=== PATIENT | male | born 1955 | race Caucasian/White ===

== ENCOUNTER 2017-05-04 10:48 | Inpatient (IN) | payer MEDICARE ==
[2017-05-04 11:36] LABS: #Basophils 0.1 thou/uL (0.0-0.2); #Eosinphils 0.1 thou/uL (0.0-0.7); #Lymphocytes 1.9 thou/uL (1.20-3.40); #Monocytes 0.8 thou/uL (0.11-0.59); %Basophils 0.6 % (0.0-1.0); %Lymphocytes 17.2 % (21.0-51.0); %Monocytes 7.3 % (0.0-10.0); Hemoglobin 6.4 g/dL (14.0-18.0); Mean Corpuscular HGB CONC 34.3 g/dL (32.0-36.0); Mean Corpuscular Hemoglobin 36.2 pg (27.0-31.0); Mean Platelet Volume 7.2 fL (7.4-10.4); Platelet Count 196 thou/uL (130-400); RBC Distribution Width 13.7 % (11.5-14.5); Red Blood Cell (RBC) Count 1.77 mill/uL (4.70-6.10); White Blood Cell (WBC) Count 10.8 thou/uL (4.8-10.8)
--- NOTE | 2017-05-04 12:02 | CT ---
CT CERVICAL SPINE WITHOUT CONTRAST: Comparison: 04-19-13 History: Fall two days ago with neck pain. Technique: Multiple contiguous axial images were obtained in a CT of the cervical spine without contr ast. Sagittal and coronal reformats were performed. FINDINGS: There are moderate to severe degenerative changes throughout the cervical spine. The vertebral bodies demonstrate normal height and alignment without acute fracture or subluxation. No prevertebral soft tissue swelling is seen. The posterior facets are well aligned. Normal alignment of the skull base with the cervical spine is seen. There are multiple disc osteophyte complexes within the central canal. The largest is seen at C3-4 an d this appears to cause severe central canal stenosis at this level. This was present on the prior ex amination but slightly more prominent on today's examination. IMPRESSION: Degenerative changes of the cervical spine without acute osseous abnormality. POS: [facility]
--- NOTE | 2017-05-04 12:04 | CT ---
HEAT CT WITHOUT CONTRAST: 05/04/2017 HISTORY: Dizzy. Syncope. Fall. Pain. COMPARISON: 02/16/2015 TECHNIQUE: Serial axial CT imaging is obtained at 5 mm intervals, from the vertex through the skull base, withou t contrast. FINDINGS: A focal area of calcification is seen along the course of the transverse sinus on the left, unchanged since 2014. The imaged paranasal sinuses/mastoid air cells are well aerated. There is no displaced calvarial fracture. There is no intracranial hemorrhage, midline shift, mass effect, or ventricular enlargement. There i s mild diffuse cerebral volume loss. There is periventricular and deep white matter hypodensity, sug gesting small vessel disease. IMPRESSION: Evidence of small vessel disease. No intracranial hemorrhage or displaced calvarial fracture. POS: [facility]
[2017-05-04 12:05] LABS: ALT (SGPT) 119 U/L (8-55); AST (SGOT) 160 U/L (5-34); Acetaminophen Less than 6.0 mcg/mL (10.0-30.0); Albumin 2.8 g/dL (3.4-4.8); Alcohol Less than 10 mg/dL (Less than 10); Alkaline Phosphatase 71 U/L (40-150); Anion Gap 12 mmol/L (10-20); BUN (Urea Nitrogen) 95 mg/dL (8.4-25.7); Bilirubin, Total 0.9 mg/dL (0.2-1.2); CK (CPK) 346 U/L (30-200); Calc. Creatinine Clearance 0 mL/min (70-130); Calcium 8.9 mg/dL (7.8-10.44); Carbon Dioxide 22 mmol/L (23-31); Chloride 108 mmol/L (98-107); Estimated GFR-MDRD 35; Glucose 129 mg/dL (80-115); Potassium 4.1 mmol/L (3.5-5.1); Protein, Total 5.8 g/dL (5.8-8.1); Salicylate Less than 8.0 mg/dL (15.0-30.0); Sodium 138 mmol/L (136-145)
[2017-05-04 12:08] LABS: Troponin I 0.276 ng/mL (< 0.028)
--- NOTE | 2017-05-04 12:08 | RAD ---
SINGLE VIEW OF THE CHEST: Comparison: 02-16-15 History: Patient fell two days ago with altered mental status, weakness. FINDINGS: Single view of the chest shows a normal sized cardiomediastinal silhouette. There is no evidence of c onsolidation, mass, or pleural effusion. The bones are unremarkable. IMPRESSION: No evidence of acute cardiopulmonary disease. POS: [facility]
[2017-05-04 12:11] LABS: CKMB 12.1 ng/mL (0-6.6)
[2017-05-04 13:11] LABS: Bilirubin Negative (Negative); Blood, Urine Negative (Negative); Clarity CLEAR (Clear); Glucose, Urine (Dipstick) Negative (Negative); Leukocyte Negative (Negative); Nitrite Negative (Negative); Protein, Urine (Dipstick) Negative (Neg-Trace); Specific Gravity, Urine 1.018 (1.002-1.036); Urobilinogen 0.2 mg/dL (0.2-1.0); pH, Urine 5.5 (5.0-9.0)
[2017-05-04 13:24] LABS: Amphetamine Not Detected (NotDetected); Barbiturates Screen Not Detected (NotDetected); Benzodiazepine Screen Not Detected (NotDetected); Cocaine Metabolite Screen Detected (NotDetected); Medtox Control Line Valid? VALID (VALID); Medtox Reader # READER 1; Methadone Not Detected (NotDetected); Methamphetamine Not Detected (NotDetected); Opiate Screen Not Detected (NotDetected); Oxycodone Screen Not Detected (NotDetected); Phencyclidine (PCP) Not Detected (NotDetected); THC/Cannabinoid Screen Not Detected (NotDetected); Tricyclic Screen Not Detected (NotDetected)
[2017-05-04 15:17] LABS: Troponin I 0.238 ng/mL (< 0.028)
--- NOTE | 2017-05-04 15:48 | HP ---
PRIMARY CARE PHYSICIAN: Dr. Escoto. CHIEF COMPLAINT: Generalized weakness and I passed out two days ago. HISTORY OF PRESENT ILLNESS: Mr. Blackwell is a pleasant 62-year-old gentleman who has a history of hyp ertension and previous alcohol abuse as well as polysubstance abuse. Please note that the patient is a bit lethargic and is very difficult to obtain a history from him. Therefore, the history and phys ical was extremely limited. Mr. Blackwell states that he passed out about 2 days ago. He initially sa ys he was out for a day and a half and then later says he was unconscious for a day. It is unclear h ow he made it to the emergency room. He says that a friend called EMS for him. He says it is a pers on that lived in the building; however, it is unclear whether the person came and found him or gricelda prakash called the patient for help. The patient had actually about 2 stories. He says that one he went a nd got the neighbor who apparently lived across the craft, but then later he says that he called out f or help and the neighbor heard him and then called EMS. It is unclear whether or not he was ambulato ry after he had this syncopal episode and I think that the patient may not know. As he originally sa id he did not know initially. Nevertheless, he was brought to the emergency room and he says that he has been feeling weak over the last few days. He says that sometimes he feels dizzy and he has had some nausea. He also admits to some lower abdominal pain and he also says that he has not eaten in a couple of days, but otherwise essentially no other history is obtainable. When asked if he has had any hematemesis or any melena. He answers no; however, he has not had a bowel movement in several da ys and he cannot remember. When he was in the ER, he was found to be anemic with hemoglobin of 6.4, which is quite a bit lower than his last admission about a year or so ago and CT scan of the brain wh ich was negative and he is being admitted for syncope and severe anemia. The review of systems is es sentially unobtainable and I am not sure how reliable it is; therefore a full review of systems was n ot performed. He was able to tell me that he is not having any headache. He denied having any chest pain. He denied feeling short of breath and he denied any lower extremity pain, but other than that it was unobtainable. PAST MEDICAL HISTORY: Significant for hypertension, previous alcohol abuse, polysubstance abuse, hep atitis C. The patient admits to cirrhosis. There was some mention of portal hypertension on a previ ous endoscopy. PAST SURGICAL HISTORY: He has had a rhinoplasty, left shoulder surgery, he has had a suprapubic cath eter placed. ALLERGIES: No known drug allergies. SOCIAL HISTORY: He says he smokes about a pack a day for many years. He says that he drinks for a l leopoldo time. He initially would not quantitate, but then later says it is about quarter and half of bee r a day, but he says his last drink was over 4 months ago. He also uses cocaine which he smokes. He denies any other illicit drug use. He is not . He has no children and he says that a person by the name of Ishan Salinas who was in acquaintance would be his next of kin. FAMILY HISTORY: No history of any inheritable diseases. MEDICATION: He says he is on lisinopril. PHYSICAL EXAMINATION: GENERAL: He is alert. He is oriented, but he has very difficult responding to questions. VITAL SIGNS: His blood pressure was approximately 127/80, heart rate was in the 70s, respiratory rat e of 16, and he is afebrile. He is also a bit underweight for his height. He does not appear to be very well kept. HEENT: His pupils are equal and reactive. They appear to be slightly icteric. Throat: There is no erythema, no exudates. NECK: No adenopathy, no bruits. LUNGS: Clear. I do not appreciate any wheezing or rales. CARDIOVASCULAR: He has a normal S1 and S2. I did not appreciate an S3 or S4. ABDOMEN: Soft, nontender. The liver was palpable below the left costal margin. There is no fluid w ave. No rebound, no guarding, no appreciable splenomegaly. EXTREMITIES: There is no edema. He does have some chronic venous stasis changes. He has some bunio n deformities of the feet. NEUROLOGIC: Neurologically, his muscle strength was 5/5 in both his upper and lower extremities. He had good stone breaker strength. He did have some difficulty with [id number], a little bit of past point ing there. IMAGING DATA AND LABORATORY DATA: On his EKG, it was sinus. The rate is 66. He did have some deep T-wave inversions in V4 through V6 and some voltage criteria for LVH. White blood cell count 10.8, h emoglobin 6.4, hematocrit is 18.7, and platelet count is 196. Sodium 138, potassium 4.1, chloride is 108, CO2 was 22, BUN of 95, creatinine of 1.98, glucose is 129, AST is 160, ALT is 119, creatinine k inase was elevated at 346. Urinalysis was essentially negative and urine toxicology was positive for cocaine. CT of the brain was negative for any acute intracranial infarcts or bleed and CT scan of t he cervical spine, there is no fracture or dislocation. ASSESSMENT AND PLAN: This is a 62-year-old gentleman that presents with syncope and anemia. It is u nclear whether the syncope was related to the anemia or some other etiology. 1. With regards to the anemia, this is a macrocytic anemia. It is likely nutritional due to excessi ve alcohol intake whether this was in the past or recent. However, the patient does have a history o f cirrhosis and there was some evidence of portal gastropathy on an endoscopy that he had about a yea r ago and this puts him at risk for possible gastrointestinal etiologies for bleed such as esophageal varices, etc. For this reason, we will check his stool guaiac and likely we will go ahead and consu Gastroenterology for evaluation. We will also check a B12 and folic acid level as well as iron an d ferritin and place him empirically on thiamine and folate. 2. Syncope. This could be as a result of the anemia. It could be a result of substance abuse and/o r both; however he does have some significant EKG changes with some deep T-wave inversions laterally. Once he is clinically more stable, he likely will need a test to rule out cardiac ischemia such as a stress test; however, at this point, we can do more noninvasive evaluation by getting an echo as we ll as carotid Dopplers. 3. We will place him on GI prophylaxis. We will get an INR and if the INR is not elevated, then we will place him on deep venous thrombosis prophylaxis. We will also monitor his blood pressure and tr eat that as needed as well.
[2017-05-04] MEDS ORDERED: Ondansetron ODT 4 MG TAB SL PRN (16:32)
[2017-05-04] MEDS ORDERED: Ondansetron HCl/PF 4 MG/2 ML Vial IVP PRN ×2 (16:32→17:00)
[2017-05-04] MEDS ORDERED: Mag-Al 1200 mg/1200 mg/30 ML UDCUP PO PRN (17:00)
[2017-05-04] MEDS ORDERED: Ondansetron ODT 4 MG TAB PO PRN (17:00)
[2017-05-04] MEDS ORDERED: hydrALAZINE 20 MG/ML VIAL SLOW IVP PRN (17:00)
--- NOTE | 2017-05-04 18:17 | ULT ---
BILATERAL CAROTID DUPLEX ULTRASOUND: 05/04/17 HISTORY: Syncope. Real time color doppler evaluation of the right and left carotid systems was performed. This shows so me plaque formation at the origin of both internal carotid arteries. On the right side, peak systolic velocities of the common carotid are 139 cm/s. Internal carotid velo cities were 130 cm/s. External carotid velocities 132 cm/s. On the left side, peak systolic velocities of the common carotid are 153 cm/s. Internal carotid veloc ities 144 cm/s. External carotid velocities 116 cm/s. Vertebral flow is antegrade bilaterally. IMPRESSION: Elevated peak systolic velocities in both internal carotid arteries, also with the diastolic velociti es of the left internal carotid artery slightly elevated at 40 cm/s. However, this patient also has e levated common carotid velocities, although the peak systolic velocities would fall in the 50-69% ran ge. It is probably less than this given the overall elevated velocities. POS: [facility]
[2017-05-04] MEDS: Sodium Chloride 0.9% 1,000 ML IV SCH (18:38)
[2017-05-04 18:52] LABS: Troponin I 0.257 ng/mL (< 0.028)
[2017-05-04] MEDS ORDERED: FLU VACC QS2017-18 36 mo. & older 0.5 ML SYRINGE IM ONE (21:00)
--- NOTE | 2017-05-04 22:16 | CON ---
DATE OF CONSULTATION: 05/04/2017 HISTORY OF PRESENT ILLNESS: The patient is a 62-year-old male who presented with generaliz ed weakness. He is a somewhat poor historian, is having difficult to remembering embarrassed aspects of his history of present illness. He reports he got dizzy and weak and was unable to stand. He de nies any melena, hematochezia, any nausea, vomiting, any recent weight loss. He denies any abdominal pain. He is noted to be anemic with hemoglobin of 6.4. He underwent evaluation last year by Dr. Cesario ugarte for anemia and diarrhea and EGD and colonoscopy showed small adenomatous polyp, moderate divertic ulosis coli, moderate internal hemorrhoids, mild portal hypertensive gastropathy in the proximal stom ach, but no other abnormalities. He does have a history of hepatitis C and cirrhosis. PAST MEDICAL HISTORY: Significant for hepatitis C, alcohol abuse, polysubstance abuse, cirrhosis. PAST SURGICAL HISTORY: Includes rhinoplasty shoulder surgery, suprapubic catheter placement. ALLERGIES: No known allergies. SOCIAL HISTORY: He stopped drinking. He continues to smoke. He says he continues to use cocaine. FAMILY HISTORY: Negative for GI or liver disease. MEDICATIONS: He reports he is on lisinopril, but he is having difficulty remembering the aspects on his discharge summary approximately a year ago. Corgard 20 mg p.o. daily, Lasix 40 mg p.o. daily, Al dactone 100 mg p.o. daily, lisinopril 20 mg p.o. daily, Flomax 0.4 mg p.o. daily, thiamine 100 mg p.o . daily, hydralazine 50 mg p.o. t.i.d., Proscar 5 mg p.o. daily, Cipro 500 mg p.o. b.i.d. for 5 days and Flagyl for 5 days. REVIEW OF SYSTEMS: Unobtainable. PHYSICAL EXAMINATION: VITAL SIGNS: Temperature 98.7, pulse 77, respiratory rate 18, blood pressure 157/72. HEENT: Unremarkable except for poor dentition. NECK: Supple. CHEST: Clear. CARDIOVASCULAR: Regular rate and rhythm. ABDOMEN: Soft, nontender, without organomegaly or masses. Bowel sounds are present. RECTAL: Deferred. EXTREMITIES: Normal. NEUROLOGIC: Nonfocal. LABORATORY DATA: Admission laboratory shows a white blood cell count 10.8, hemoglobin 6.4, hematocri t of 18.7, MCV is 106, platelet count 196. Chemistry panel, chloride 108, CO2 of 22, BUN of 95, crea tinine 1.98, glucose 129, AST 160, ALT 119, CK of 346. Albumin 2.8. Troponin 0.267. Previous alpha fetoprotein from a year ago was 56.1. Vitamin B12 from last year is 939. Folate level was normal. Hepatitis C antibody is positive with hepatitis C RNA, UltraQuant showing 129,450. ASSESSMENT: 1. Anemia -- probably multifactorial secondary to portal hypertensive gastropathy. 2. Renal insufficiency. 3. Polysubstance abuse. 4. History of portal hypertensive gastropathy. 5. Cirrhosis secondary to hepatitis C. RECOMMENDATIONS: 1. Resume Corgard. 2. PPI. 3. Transfuse. 4. No need for endoscopy at this time.
[2017-05-04] MEDS ORDERED: diphenhydrAMINE 25 MG CAP PO SCH (22:45)
[2017-05-04 22:59] LABS: Troponin I 0.263 ng/mL (< 0.028)
[2017-05-05] MEDS: Sodium Chloride 0.9% 1,000 ML IV SCH (05:05)
[2017-05-05 05:34] LABS: #Basophils 0.1 thou/uL (0.0-0.2); #Eosinphils 0.2 thou/uL (0.0-0.7); #Lymphocytes 2.2 thou/uL (1.20-3.40); #Monocytes 0.7 thou/uL (0.11-0.59); #Neutrophils 4.9 thou/uL (1.40-6.50); %Basophils 1.1 % (0.0-1.0); %Eosinophils 2.9 % (0.0-10.0); %Lymphocytes 26.7 % (21.0-51.0); %Monocytes 8.8 % (0.0-10.0); %Neutrophils 60.5 % (42.0-75.0); Hemoglobin 6.5 g/dL (14.0-18.0); Mean Corpuscular HGB CONC 35.3 g/dL (32.0-36.0); Mean Corpuscular Hemoglobin 35.4 pg (27.0-31.0); Mean Platelet Volume 7.5 fL (7.4-10.4); Platelet Count 122 thou/uL (130-400); RBC Distribution Width 16.6 % (11.5-14.5); Red Blood Cell (RBC) Count 1.84 mill/uL (4.70-6.10); White Blood Cell (WBC) Count 8.1 thou/uL (4.8-10.8)
[2017-05-05 05:54] LABS: Anion Gap 8 mmol/L (10-20); BUN (Urea Nitrogen) 71 mg/dL (8.4-25.7); Calc. Creatinine Clearance 36 mL/min (70-130); Calcium 8.1 mg/dL (7.8-10.44); Carbon Dioxide 23 mmol/L (23-31); Chloride 111 mmol/L (98-107); Estimated GFR-MDRD 39; Glucose 94 mg/dL (80-115); Iron 199 ug/dL (65-175); Iron Binding Capacity, Total 259 mcg/dL (261-462); Potassium 3.8 mmol/L (3.5-5.1); Sodium 138 mmol/L (136-145)
[2017-05-05 06:12] LABS: Ferritin 886.49 ng/mL (22-322); Thyroid Stimulating Hormone 2.9275 uIU/mL (0.35-4.94)
[2017-05-05 06:26] LABS: Folate (Folic Acid) 14.3 ng/mL (7.0-31.4)
[2017-05-05 08:24] VITALS: BMI 19.0
[2017-05-05] MEDS ORDERED: Pantoprazole 40 MG VIAL IVP SCH (09:00)
[2017-05-05] MEDS: Folic Acid 1 MG TAB PO SCH (09:32)
[2017-05-05] MEDS: Nadolol 40 MG TAB PO SCH (09:32)
--- NOTE | 2017-05-05 10:08 | PDOC.PN ---
- Subjective Encounter Start Date: 05/05/17 Encounter Start Time: 10:04 Last night Mr. Blackwell made statements to staff that he wanted to kill himself, and end is life. A sitter was ordered. Now he says he was " just over reacting" . That he was just having an Anxiety and panic attack due to a Surgery which " keeps getting put off". He also refused to have the Echo done, and says he doesn't feel that it is necessary. When asked again how it came to be that he is in the hospital he now says he doesn't remember passing out. He now says that he just " had a panic/anxiety attack, and just succumbed to his will " and that is why he is in the hospital. - Objective Resuscitation Status: Resuscitation Status FULL:Full Resuscitation MAR Reviewed: Yes Vital Signs & Weight: Vital Signs (12 hours) Temp Pulse Resp BP Pulse Ox 05/05/17 07:50 98.6 F 88 18 118/60 96 05/05/17 04:00 97.7 F 85 15 149/74 H 100 05/04/17 22:10 99.0 F 86 18 161/74 H 98 Weight Admit Weight 132 lb Weight 132 lb 9 oz I&O: 05/04/17 05/05/17 05/06/17 06:59 06:59 06:59 Intake Total 2375 Output Total 875 Balance 1500 Result Diagrams: 05/05/17 04:25 05/05/17 04:25 Phys Exam - Physical Examination HEENT: PERRLA Respiratory: no wheezing, no rales, no rhonchi, clear to auscultation bilateral Cardiovascular: RRR, no significant murmur Gastrointestinal: soft, non-tender, positive bowel sounds + Right inguinal hernia Musculoskeletal: no edema Dx/Plan (1) Alcoholic encephalopathy Code(s): G31.2 - DEGENERATION OF NERVOUS SYSTEM DUE TO ALCOHOL; F10.20 - ALCOHOL DEPENDENCE, UNCOMPLICATED Status: Acute (2) Chronic hepatitis C Code(s): B18.2 - CHRONIC VIRAL HEPATITIS C Status: Chronic (3) Cocaine abuse Code(s): F14.10 - COCAINE ABUSE, UNCOMPLICATED Status: Chronic (4) HTN (hypertension) Code(s): I10 - ESSENTIAL (PRIMARY) HYPERTENSION Status: Chronic (5) Portal hypertensive gastropathy Code(s): K31.89 - OTHER DISEASES OF STOMACH AND DUODENUM Status: Chronic - Plan * Mr. Blackwell has off and on confusion and some elements of confabulation which are can been seen in alcoholic encephalopathy- he says he no longer drinks, but has metabolic features consistent with chronic alcohol abuse, including elevated LFT's, and macrocytic anemia. I suspect he has Acoholic encephalopathy - will give Thiamine IV for 3 days, then transition back to oral * Anemia- GI consult appreciated- this is likely multi-factoral- will continue Thiamine and folate, and transfuse for HGB less than 7 * Syncope- it is unclear if he ever had syncope, unfortunately I am unable to obtain an accurate history- He has refused Echo, and will discontinue Telemetry * Inguinal Hernia- will consult Surgery * ? Suicidal Ideation- he now denies- will continue sitter, and Obtain [facility] consult .
[2017-05-05] MEDS: Nicotine 14 MG PATCH TD SCH (17:39)
--- NOTE | 2017-05-05 19:33 | CON ---
DATE OF CONSULTATION: 05/05/2017 HISTORY: Mr. Blackwell is a 62-year-old man well known to me from multiple clinic encounters for a right inguinal hernia. He said that he wanted this repaired in the past and I even had him scheduled for a repair on Tuesday, but he did not keep his operative appointment. He states that he misunderstood that he was scheduled for surgery, but then he states that he was very anxious about having surgery, so it is unclear whether he knew about his surgery date or not. He came to the hospital on Tuesday night because of feeling weak and dizzy and possibly falling or having a syncopal episode. Again the details are unclear and the patient's history is somewhat inconsistent. He denies any recent resumption of alcohol abuse, although he has been smoking about half pack a day and using cocaine. He was found on evaluation in the emergency room to have a very low hemoglobin and hematocrit of 6.4 and 18.7. He was admitted to the hospital for further observation and is currently being transfused. He was also noted to have acute renal insufficiency with a BUN and creatinine of 95 and 1.98 that has come down somewhat to 71 and 1.8. On admission, his AST, ALT were also elevated at 160 and 119 and his troponins were in the 0.27 range and has remained about the same. When I last saw the patient in my clinic at bedside, ultrasound did not reveal any significant ascites. He has had a history of urethral injury from a traumatic [place] requiring a suprapubic catheter placement and he has had some difficulty with voiding since then, but postvoid residual was small to moderate on ultrasound, so I have prescribed Flomax to try to minimize postoperative voiding problems. He states that he was taking his Flomax as prescribed, but stopped taking them three days ago because he ran out. He was given refills on this, but he did not refill it. He did not understand that he was supposed to take this continuously until after his surgery. The patient states that when he went to the bathroom here in the hospital just a while ago, his stool was very dark in color, but that he has not noticed any changes in color prior to today. He states that he has not seen any blood in his stool and he has not thrown up any blood. He denies any abdominal pain. His right hernia is still bothering him. PAST MEDICAL HISTORY: Hepatitis C with cirrhosis and history of alcohol abuse, history of portal hypertensive gastropathy and an adenomatous polyp by an endoscopy one year ago, polysubstance abuse and urethral injury leading to ongoing voiding difficulties, known gallstones by ultrasound. PAST SURGICAL HISTORY: Rhinoplasty, shoulder surgery, suprapubic catheter. SOCIAL HISTORY: He is still smoking and occasionally abusing cocaine, but states repeatedly that he has not had any alcohol in several months. FAMILY HISTORY: His father had alcoholic cirrhosis, but this resolved after he stopped drinking. MEDICATIONS: He reports that he was taking lisinopril as an outpatient as well as levocetirizine. He told me that he was taking Flomax up until about 3 days ago. ALLERGIES: He has no known drug allergies. LABORATORY DATA: As stated in the HPI. IMAGING: CT of the brain and cervical spine did not show any acute abnormalities. He likely has a noncritical stenosis of the carotid arteries by Doppler. PHYSICAL EXAMINATION: VITAL SIGNS: Patient has been afebrile since his admission. Heart rate 81, blood pressure 118/64, respirations 16, 97% saturated on room air. GENERAL: Reveals a somewhat disheveled man in no acute distress. He is not flushed or toxic in appearance. He is not jaundiced or icteric. He is not notably anxious. HEENT: Unremarkable. NECK: Supple, without lymphadenopathy or thyroid nodules. No supraclavicular or cervical lymphadenopathy. HEART: Regular in its rate and rhythm. I do not appreciate any murmurs, rubs, or gallops. LUNGS: Clear. ABDOMEN: Soft and nondistended. His liver is palpable below the costal margin on the right for a few fingerbreadths. No definite fluid wave, easily reducible right inguinal hernia. EXTREMITIES: Warm and well perfused without edema. NEUROLOGIC: No focal deficits. PSYCHIATRIC: Patient is a very vague historian and inconsistent. He did not do well on the mini mental status exam. He was able to draw a clock face, but could not give the correct day of the week or date of the month. He initially stated that it was 1918, although he self-corrected to 2018. It took him several minutes to recall the name the president, he could not count backwards by 3s and could not even give the correct starting number. He remembered 2/3 random words. ASSESSMENT AND PLAN: A 62-year-old man with a moderately symptomatic right inguinal hernia. He likely has decompensated cirrhosis. He is very anemic and in acute renal insufficiency as well. At this point, he is not an operative candidate. I have advised him to follow up with me as an outpatient after his medical issues have stabilized for consideration of surgery. I have ordered an ultrasound of the abdomen. His alpha-fetoprotein was elevated, so there is concern for hepatocellular carcinoma. I have also asked the polytechnic registrar to check for hydronephrosis since he has a known history of urethral injury and difficulty voiding, requiring suprapubic catheter placement in the past. I will ask his nurse to check a postvoid residual and will start him back on his Flomax to try to minimize any contribution of his prostate to his voiding issues. He also has elevated troponins, but has refused echocardiogram. His medical doctors believe that the troponins are from demand ischemia rather than an acute coronary event. Nonetheless, an echocardiogram or evaluation by a water/wastewater engineer would be necessary before proceeding with elective surgery for his hernia. At this point, he is likely not going to be able to have elective hernia repair unless he has a dramatic improvement in his clinical status, but we will see how he does. CHIP
[2017-05-05] MEDS: Tamsulosin HCl 0.4 MG CAP PO SCH (20:34)
[2017-05-05] MEDS: Famotidine 20 MG TAB PO SCH (20:34)
--- NOTE | 2017-05-05 22:02 | PRG ---
DATE OF SERVICE: 05/05/2017 SUBJECTIVE: Mr. Blackwell has no acute complaints. He did pass a couple of small black bowel movement s today. These were firm small hard stools. Has had no abdominal pain. OBJECTIVE: VITAL SIGNS: Temperature 98.7, pulse 61, blood pressure 116/63. GENERAL: He is in no acute distress. He is awake and alert. EYES: Have no scleral icterus. LUNGS: Clear to auscultation bilaterally. HEART: Regular rate and rhythm. ABDOMEN: Soft, nontender, nondistended, bowel sounds are present. EXTREMITIES: No lower extremity edema. IMPRESSION: 1. Anemia. This is likely multifactorial. He has macrocytic anemia and hemoglobin of 6.5 without s ignificant overt bleeding. He has renal insufficiency and likely dietary component to this. He did have black stool today and with history of cirrhosis and failure to respond appropriately to transfus ion. We will plan to evaluate this further with endoscopy. He did receive a unit of blood and his h emoglobin improved from 6.4 to 6.5 and remained stable at 6.4 to 6.5. He received an additional unit of blood today. 2. Cirrhosis and polysubstance abuse. 3. Encephalopathy. He does not have significant asterixis currently. He is receiving thiamine for suspected alcoholic encephalopathy. 4. Chronic hepatitis C. RECOMMENDATIONS: 1. We will plan EGD tomorrow. 2. Recheck hemoglobin to evaluate response to transfusion. 3. Add proton pump inhibitor daily.
[2017-05-06 05:17] LABS: Platelet Count 86 thou/uL (130-400)
[2017-05-06] MEDS: Nadolol 40 MG TAB PO SCH (06:01)
--- NOTE | 2017-05-06 07:59 | ULT ---
COMPLETE ABDOMEN ULTRASOUND: INDICATION: History of severe anemia, urethral injury, alcohol abuse, polysubstance abuse, hepatitis C, and cirrh osis with elevated LFTs. FINDINGS: There is mild scattered ascites. There is cirrhotic morphology of the liver. No focal hepatic lesio n was evident. There was gallbladder wall thickening measuring up to 4.7 mm without reported sonogra phic Salmeron's sign. Shadowing mobile sludge and stone was present within the gallbladder. Common bi le duct measured 4.3 mm. Proximal aorta measured 2.3 cm in its greatest dimension. The mid abdominal aorta measured 1.8 cm. The distal abdominal aorta measured 1.6 cm. The right kidney measured 9.2 x 3.6 x 4.4 cm. The left kidney measured 9.1 x 4.7 x 4 cm. No focal r enal lesion or hydronephrosis is evident. Prevoid bladder volume was 334.2 cc. Post bladder volume was 299.2 cc. The patient was unable to re portedly void completely. Visualized aspects of the pancreas were unremarkable. The spleen was mildly enlarged measuring 12.7 cm. IMPRESSION: 1. Cirrhosis with mild ascites. 2. The spleen is upper limits of normal measuring 12.7 cm. 3. Gallbladder wall thickening may be related to passive edema from the patient's cirrhosis. There is cholelithiasis and gallbladder sludge present. No sonographic Salmeron's sign was present to sugges t the presence of acute cholecystitis. 4. Pre- and post-bladder volumes as above. POS: [facility]
--- NOTE | 2017-05-06 10:58 | PQF ---
CLINICAL DOCUMENTATION IMPROVEMENT CLARIFICATION FORM: ICD-10 Updated PLEASE DO AN ADDENDUM TO THE PROGRESS NOTE WITH ANY DOCUMENTATION UPDATES OR ADDITIONS AND CARRY THROUGH TO DC SUMMARY. THANK YOU. DATE: 05/06 ATTN: DR. VINAY PEOPLES Please exercise your independent, professional judgment in responding to the clarification form. Clinical indicators are provided on the bottom of this form for your review. Please check appropriate box(s): [ ] Acute Renal Failure (ARF) / Acute Kidney Injury (PEDRO LUIS) [ ] Other Etiology or underlying conditions related to the diagnosis of ARF/ PEDRO LUIS: [ ] Acute on Chronic Renal Failure please specify Stage of CKD (see below) [ ] CKD without ARF/PEDRO LUIS please specify Stage of CKD [ ] Other diagnosis [ ] Unable to determine National Kidney Foundation Guidelines for CKD Staging Stage I Kidney damage with normal or increased GFR GFR > 90 Stage II idney damage with mildly decreased GFR GFR 60-89 Stage III Kidney damage with moderately decreased GFR GFR 30-59 Stage IV Kidney damage with severely decreased GFR GFR 16-29 Stage V Kidney failure GFR<15 ESRD End Stage Renal Disease On dialysis For continuity of documentation, please document condition throughout progress notes and discharge summary. Thank You. CLINICAL INDICATORS - SIGNS / SYMPTOMS / LABS ER PHYSICIAN DIAGNOSES DOCUMENTATION 05/04: SYMPTOMATIC ANEMIA, ACUTE ON CHRONIC RENAL INJURY GI CONSULT DOCUMENTATION 05/04: ASSESSMENT: 2. RENAL INSUFFICIENCY GS CONSULT DOCUMENTATION 05/05: ASSESSMENT & PLAN: HE IS VERY ANEMIC & IN ACUTE RENAL INSUFFICIENCY WELL BUN: 95 CR: 1.98 GFR: 35 71 1.80 39 RISK FACTORS: SEVERE ANEMIA COCAINE ABUSE ALCOHOL ABUSE DEHYDRATION TREATMENTS: IVF (NS IV 05/04 - 05/05, 1L NS IN ER) SERIAL LABS BLOOD TRANSFUSION (2U PRBC'S) THANK YOU! Марина (This form is maintained as a part of the permanent medical record) 2014 [employer]. All Rights Reserved Марина Horowitz RN, BSN [email or web address] Office: [phone] [facility]
[2017-05-06] MEDS: Famotidine 20 MG TAB PO SCH (11:32)
--- NOTE | 2017-05-06 12:01 | OP ---
DATE OF PROCEDURE: 05/06/2017 PROCEDURE: Esophagogastroduodenoscopy. PREOPERATIVE DIAGNOSES: Anemia and gastrointestinal bleed with black stool. PROCEDURE IN DETAIL: Informed consent was obtained from the patient. He was sedated with total intr avenous anesthesia. The bite block was placed and the endoscope was advanced easily to the second po rtion of the duodenum and retroflexion was performed in the stomach. The esophagus had no varices. There was a 1.5 cm shallow linear ulcer in the distal esophagus. There were no stigmata of recent bl eeding associated with this. The stomach was normal including retroflexed views. The pylorus and fi rst and second portions of the duodenum were normal. IMPRESSION: 1. Grade C erosive esophagitis with a shallow linear 1.5 cm ulcer in the distal esophagus without st igmata of recent bleeding. 2. Otherwise normal esophagogastroduodenoscopy. No varices. RECOMMENDATIONS: 1. Proton pump inhibitor p.o. daily. 2. Follow up in GI Clinic for long-term management of the cirrhosis. I will sign off. Please call if GI can be of assistance.
[2017-05-06] MEDS: Folic Acid 1 MG TAB PO SCH ×3 (12:11→19:50)
[2017-05-06] MEDS ORDERED: PROPOFOL 200 MG/20 ML VIAL ONE (14:34)
[2017-05-06] MEDS ORDERED: Lidocaine 1% PF 5 ML VIAL ONE (14:34)
[2017-05-06] MEDS ORDERED: cloNIDine 0.1 MG TAB PO PRN (17:21)
[2017-05-06] MEDS: Nicotine 14 MG PATCH TD SCH (17:39)
[2017-05-06] MEDS: Tamsulosin HCl 0.4 MG CAP PO SCH (19:43)
--- NOTE | 2017-05-06 21:54 | PDOC.PN ---
- Subjective Encounter Start Date: 05/06/17 Encounter Start Time: 15:30 Patient seen and examined. No new complaints. No overnight events. s/p EGD. Denies any suicidal ideation - Objective Resuscitation Status: Resuscitation Status FULL:Full Resuscitation MAR Reviewed: Yes Vital Signs & Weight: Vital Signs (12 hours) Temp Pulse Resp BP Pulse Ox 05/06/17 20:00 97.4 F L 64 20 160/85 H 100 05/06/17 11:57 98.7 F 56 L 16 110/70 97 Weight Admit Weight 132 lb Weight 138 lb 14.4 oz I&O: 05/05/17 05/06/17 05/07/17 06:59 06:59 06:59 Intake Total 2375 1813 1111 Output Total 875 275 Balance 1500 1538 1111 Result Diagrams: 05/07/17 08:37 05/05/17 04:25 Phys Exam - Physical Examination Constitutional: NAD Respiratory: no wheezing, no rhonchi Cardiovascular: RRR, no rub Gastrointestinal: soft, non-tender, positive bowel sounds Musculoskeletal: no edema Neurological: moves all 4 limbs Dx/Plan - Plan DVT proph w/SCDs IMPRESSION: 1. Symptomatic Anemia s/p 2 unit PRBC, Chronic GI blood loss from Grade C esophagitis 2. Near syncope due to # 1, Refused Echo 3. ?Mod Carotid artery disease - PCP to follow 4. Rt inguinal hernia - Surg following, Post void 190 ml 5. HTN/Cocaine abuse/Cirrhosis/Chronic Hep C/Med noncompliance/PEDRO LUIS on CKD 3/ Elevated troponins due to severe anemia/Thrombocytopenia PLAN: * GI/Surg following. * AM labs * Transfuse PRN * Cont to monitor * DC planning * Counselled on drug cessation. Review of Systems - Review of Systems Respiratory: negative: Cough, Dry, Shortness of Breath, Hemoptysis, SOB with Excertion, Pleuritic Pain, Sputum, Wheezing Cardiovascular: negative: chest pain, palpitations, orthopnea, paroxysmal nocturnal dyspnea, edema, light headedness - Medications/Allergies Allergies/Adverse Reactions: Allergies Allergy/AdvReac Type Severity Reaction Status Date / Time No Known Drug Allergies Allergy Verified 05/04/17 16:07 Medications: Current Medications Al Hydroxide/Mg Hydroxide (Maalox) 30 ml PO Q6H PRN PRN Reason: Heartburn or Indigestion Clonidine (Catapres) 0.1 mg PO Q4H PRN PRN Reason: Systolic BP > 180 Folic Acid (Folvite) 1 mg PO HS [facility] Last Admin: 05/06/17 19:50 Dose: 1 mg Multivitamins (Theragran) 1 tab PO DAILY [facility] Nadolol (Corgard) 40 mg PO DAILY [facility] Last Admin: 05/06/17 06:01 Dose: 40 mg Nicotine (Nicoderm Patch) 14 mg TD Q24HR [facility] Last Admin: 05/06/17 17:39 Dose: 14 mg Ondansetron HCl (Zofran Odt) 4 mg PO Q6H PRN PRN Reason: Nausea/Vomiting Ondansetron HCl (Zofran) 4 mg IVP Q6H PRN PRN Reason: Nausea/Vomiting Pantoprazole Sodium (Protonix) 40 mg PO BID [facility] Last Admin: 05/06/17 19:42 Dose: 40 mg Sodium Chloride (Flush - Normal Saline) 10 ml IVF PRN PRN PRN Reason: Saline Flush Tamsulosin HCl (Flomax) 0.4 mg PO [facility] Last Admin: 05/06/17 19:43 Dose: 0.4 mg Thiamine HCl (Thiamine) 100 mg PO HS [facility] Last Admin: 05/06/17 19:43 Dose: 100 mg
[2017-05-06] MEDS ORDERED: diphenhydrAMINE 25 MG CAP PO PRN (23:01)
[2017-05-07] MEDS: Nadolol 40 MG TAB PO SCH (07:41)
[2017-05-07 08:49] LABS: Hemoglobin 8.4 g/dL (14.0-18.0)
[2017-05-07] MEDS ORDERED: Multivit, Therapeutic 1 TAB PO SCH (09:00)
--- NOTE | 2017-05-07 14:43 | DIS ---
DATE OF DISCHARGE: 05/07/2017 DISCHARGE DISPOSITION: Home. FOLLOWUP: 1. Follow up with primary care physician, Dr. Bryce Escoto, in 1 week. 2. Follow up with General Surgery, Dr. Man. 3. Follow up with Dr. Butch Reeves in 2 weeks. ALLERGIES: No known drug allergies. The patient was seen on the day of discharge. Denies any new complaints. No chest pain, shortness o f breath, palpitations. DISCHARGE MEDICATIONS: Folic acid 1 mg daily, levocetirizine 5 mg q.p.m., multivitamin 1 tablet marvin y, nadolol 40 mg daily, Protonix 40 mg twice a day, Flomax 0.4 mg at bedtime, thiamine 100 mg at bedt irvin. INPATIENT CONSULTANTS: General Surgery, Dr. Man; Gastroenterology, Dr. Butch Reeves and Dr. Rosana Dozier. DIAGNOSTIC TESTS: Patient declined echocardiogram. Carotid Doppler showed possible moderate carotid stenosis bilaterally based on the elevated velocities. Primary care physician advised to follow. INPATIENT PROCEDURES: On 05/06/2017, patient underwent EGD that showed grade C erosive esophagitis w ith a shallow linear 1.5 cm ulcer in the distal esophagus without stigmata of recent bleeding. SIGNIFICANT LABORATORY DATA: Ferritin was 887, TIBC 259, iron 199. Troponins maximum of 0.263. Alp aflcon fetoprotein was 13.8, folic acid 14.3, vitamin B12 593, TSH 2.9. H and H on admission was 6.4 and at discharge 8.4. CK on admission was 346. Repeat CK after 1 week is recommended. Primary care ph ysician advised to follow. Total bilirubin 0.9, AST 160, ALT 119. Creatinine on admission was 1.98 that improved to 1.8 with IV hydration. Urine drug screen was positive for cocaine. BRIEF HOSPITAL COURSE: Patient is a 62-year-old white male with chronic hepatitis C and alcoholic ab use with cirrhosis, portal hypertension, who presented to the hospital with generalized weakness and lightheadedness. Please refer to the history and physical dated 05/04/2017 for further details. The patient was admitted to the hospital with a diagnosis of symptomatic anemia with near syncope. H e was transfused 2 units of PRBC. He was evaluated by Gastroenterology and underwent EGD as mitul d above. PPIs have been recommended. Due to near syncope, he was monitored on telemetry initially a nd was transferred to medical floor. He declined echocardiogram. He underwent carotid Doppler as di scussed above. Due to questionable suicidal ideation, patient was evaluated by [facility]. He denies any suicidal ideatio n at this time. Due to history of right inguinal hernia, General Surgery was consulted per patient request. Dr. Gonzalez maravilla recommended outpatient followup. He was started on Flomax. His postvoid residual was 190 mL. H e was placed on IV fluids for acute kidney injury. Basic metabolic panel with CK next week is recomm ended. Primary care physician advised to follow. He was extensively counseled on lifestyle modifica tion including drugs cessation. FINAL DIAGNOSES: 1. Symptomatic anemia, status post 2 units PRBC. Suspected secondary to chronic gastrointestinal bl ood loss from grade C esophagitis. 2. Near syncope, probably secondary to #1. Please note patient refused echocardiogram. 3. Suspected moderate carotid artery stenosis based on the velocities. Primary care physician advis ed to follow. 4. Right inguinal hernia. 5. Suspected benign prostatic hypertrophy with history of urethral injury in the past. Patient has been started on Flomax. 6. Hypertension. 7. Cocaine abuse. 8. Tobacco abuse. 9. Cirrhosis, probably secondary to chronic hepatitis C and alcohol. 10. Chronic alcoholism. 11. Medication noncompliance. 12. Acute kidney injury on chronic kidney disease stage 3. 13. Elevated troponins, probably secondary to anemia. Plan of care was discussed with the patient in detail. He stated understanding.
[2017-05-07] MEDS: Nicotine 14 MG PATCH TD SCH (16:12)
[2017-05-07 19:53] VITALS: BP 189/94; TEMP 97.5
[2017-05-07] MEDS: Folic Acid 1 MG TAB PO SCH (20:20)
[2017-05-07] MEDS: Tamsulosin HCl 0.4 MG CAP PO SCH (20:20)
== END 2017-05-07 21:35 | disposition home or self-care (01) | DRG 381 ==
LOC: ERS 10:48 → ERHOLD 13:50 → 2NO 15:46 → T4-B 05-05 18:50
PROVIDERS: ADMIT Internal Medicine; ATTEND Internal Medicine
PROC: 30233N1 Transfusion of Nonautologous Red Blood Cells into Peripheral Vein, Percutaneous Approach (ICD-10-PCS; principal; 2017-05-04)
PROC: 0DJ08ZZ Inspection of Upper Intestinal Tract, Via Natural or Artificial Opening Endoscopic (ICD-10-PCS; 2017-05-06)
DX: K22.11 Ulcer of esophagus with bleeding (principal); N17.9 Acute kidney failure, unspecified; G31.2 Degeneration of nervous system due to alcohol; D69.6 Thrombocytopenia, unspecified; K76.6 Portal hypertension; N18.3 Chronic kidney disease, stage 3 (moderate); I65.29 Occlusion and stenosis of unspecified carotid artery; D53.9 Nutritional anemia, unspecified; K22.10 Ulcer of esophagus without bleeding; F14.10 Cocaine abuse, uncomplicated; I12.9 Hypertensive chronic kidney disease with stage 1 through stage 4 chronic kidney disease, or unspecified chronic kidney disease; F17.210 Nicotine dependence, cigarettes, uncomplicated; R55 Syncope and collapse; B19.20 Unspecified viral hepatitis C without hepatic coma; K31.89 Other diseases of stomach and duodenum; K40.90 Unilateral inguinal hernia, without obstruction or gangrene, not specified as recurrent; K70.30 Alcoholic cirrhosis of liver without ascites; N40.0 Benign prostatic hyperplasia without lower urinary tract symptoms
CPT/HCPCS: 36415; 36430; 70450; 71045; 72125; 76700; 76856; 80048; 80053; 80306; 80307; 81003; 82105; 82274; 82550; 82553; 82607; 82728; 82746; 83540; 83550; 84443; 84484; 85014; 85018; 85025; 85049; 86850; 86900; 86901; 90471; 90682; 93005; 93880; 94760; 96360; A4216; C9113; G0008; G8978-GP-CK; G8979-GP-CI; G8987-GO-CK; G8988-GO-CI; J2001; J2704; J3411; J7050; P9016; Q2036

== ENCOUNTER 2017-05-24 01:43 | Inpatient (IN) | payer MEDICARE ==
[2017-05-24 02:28] LABS: Hemoglobin 9.3 g/dL (14.0-18.0); Mean Corpuscular HGB CONC 33.6 g/dL (32.0-36.0); Mean Corpuscular Hemoglobin 35.3 pg (27.0-31.0); Platelet Count 111 thou/uL (130-400); RBC Distribution Width 17.8 % (11.5-14.5); Red Blood Cell (RBC) Count 2.63 mill/uL (4.70-6.10); White Blood Cell (WBC) Count 3.9 thou/uL (4.8-10.8)
[2017-05-24] MEDS ORDERED: Furosemide 40 MG/4 ML VIAL ONE (02:42)
[2017-05-24 02:57] LABS: #Eosinphils 0.3 thou/uL (0.0-0.7); #Lymphocytes 0.8 thou/uL (1.20-3.40); #Monocytes 0.5 thou/uL (0.11-0.59); #Neutrophils 2.4 thou/uL (1.40-6.50); %Basophils 0.3 % (0.0-1.0); %Eosinophils 7.5 % (0.0-10.0); %Lymphocytes 20.8 % (21.0-51.0); %Monocytes 11.6 % (0.0-10.0); %Neutrophils 59.8 % (42.0-75.0); Anisocytosis SLIGHT = 6-15 cells (100X) (0-5/hpf); MDiff Complete? YES; Macrocytosis SLIGHT = 6-15 cells (100X) (0-5/hpf); PLT Morphology Comment Appears Decreased
[2017-05-24 02:59] LABS: ALT (SGPT) 73 U/L (8-55); AST (SGOT) 114 U/L (5-34); Albumin 2.8 g/dL (3.4-4.8); Alkaline Phosphatase 150 U/L (40-150); Anion Gap 8 mmol/L (10-20); BUN (Urea Nitrogen) 24 mg/dL (8.4-25.7); Bilirubin, Total 0.6 mg/dL (0.2-1.2); CK (CPK) 104 U/L (30-200); Calc. Creatinine Clearance 0 mL/min (70-130); Calcium 8.2 mg/dL (7.8-10.44); Carbon Dioxide 23 mmol/L (23-31); Chloride 108 mmol/L (98-107); Estimated GFR-MDRD 47; Globulin 3.6 g/dL (2.4-3.5); Glucose 102 mg/dL (80-115); Potassium 4.9 mmol/L (3.5-5.1); Protein, Total 6.4 g/dL (5.8-8.1); Sodium 134 mmol/L (136-145)
[2017-05-24 03:00] LABS: CKMB 3.3 ng/mL (0-6.6); Troponin I 0.022 ng/mL (< 0.028)
[2017-05-24] MEDS ORDERED: hydrALAZINE 20 MG/ML VIAL ONE (04:41)
[2017-05-24 06:18] LABS: Troponin I 0.024 ng/mL (< 0.028)
[2017-05-24] MEDS ORDERED: Ondansetron ODT 4 MG TAB SL PRN (06:26)
[2017-05-24] MEDS ORDERED: Acetaminophen 325 MG TAB PO PRN ×2 (06:26→06:35)
[2017-05-24] MEDS ORDERED: Ondansetron HCl/PF 4 MG/2 ML Vial IVP PRN (06:26)
[2017-05-24] MEDS ORDERED: Ondansetron ODT 4 MG TAB PO PRN (06:35)
[2017-05-24] MEDS ORDERED: Furosemide 40 MG/4 ML VIAL SLOW IVP SCH (06:35)
[2017-05-24 06:40] VITALS: BMI 22.6
--- NOTE | 2017-05-24 06:55 | HP ---
DATE OF ADMISSION: 05/24/2017 TIME OF SERVICE: 05:40 PRIMARY CARE PHYSICIAN: Dr. Bryce Escoto. CHIEF COMPLAINT: Shortness of breath. HISTORY OF PRESENT ILLNESS: Mr. Blackwell is a 62-year-old white male with history of hypertension, he patitis C, erosive esophagitis with linear ulcer and recent upper GI bleed, acute blood loss anemia, and history of alcohol abuse, he says he stopped. The patient notes a several day history of increasing bilateral lower extremity edema and shortness o f breath, particularly when trying to get his feet elevated on some pillows. He denies any dyspnea o n exertion, but does have some orthopnea. Denies PND, because "he was unable to go to sleep." He presented to the emergency department for evaluation after feeling short of breath. EMS was activ ated. On their arrival to his home, he was noted to be 88% on room air. He was satting 96%-97% on 4 liters nasal cannula. In the emergency department, BNP was 1700, biomarkers were normal, creatinine is 1.53, which is about his baseline and was requiring oxygen still for saturations greater than 88%. Patient was recently admitted from 05/04/2017 to 05/07/2017 for weakness and lightheadedness. He was found to have acute anemia, underwent an EGD and found erosive esophagitis with linear ulcer. There was no longer bleeding. He was placed on Protonix 40 mg b.i.d. and discharged home. He denies any changes in eating or drinking habits. He denies any chest pain. No nausea, vomiting, diarrhea, or constipation. No fevers or chills. He denies any cough or sputum production. No GI bl eeding. PAST MEDICAL HISTORY: 1. Hypertension. 2. Hepatitis C. 3. Cirrhosis. 4. Alcohol abuse chronically. 5. Erosive esophagitis. PAST SURGICAL HISTORY: Includes, 1. Right elbow/ulnar nerve transposition. 2. Rhinoplasty. 3. Suprapubic tube placement and removal. HOME MEDICATIONS: 1. Levocetirizine 5 mg p.o. daily. 2. Protonix 40 mg p.o. b.i.d. 3. Folic acid 1 mg daily. 4. Flomax 0.4 mg p.o. at bedtime. 5. Nadolol 40 mg p.o. daily. 6. Thiamine 100 mg daily. ALLERGIES: No known drug allergies. FAMILY HISTORY: Negative for clotting or bleeding disorders, no immune dysfunction, no premature cor onary artery disease. SOCIAL HISTORY: Significant for 1-pack per day of cigarettes, ongoing. He denies any IV drug abuse. He denies any current alcohol usage. REVIEW OF SYSTEMS: A 10-point review of systems was performed, negative for all systems except as st ated as per HPI. PHYSICAL EXAMINATION: VITAL SIGNS: Temperature 98.5, pulse 68, blood pressure 187/96, respiratory rate 18, satting 88% on room air, 98% on 4 liters. GENERAL: He is awake. He is alert. He is oriented x3. He is a well-developed, well-nourished, whi te male who appears to be in no acute distress. HEENT: Head is normocephalic, atraumatic. His pupils are equal, round, react to light bilaterally. Mucous membranes are moist. He has no visible lesions or thrush. NECK: Supple. There is no lymphadenopathy. He does have JVD to about 5 cm when lying at 30 degrees . There is no thyromegaly. He had normal carotid upstrokes without bruits. LUNGS: Clear anteriorly, however; posteriorly, he has rales present in both bases. He has dullness to the left base and the rales start about assisted up. ABDOMEN: Soft, it is nontender, nondistended, no masses, no organomegaly. He has got no rebound, ri gidity or guarding. EXTREMITIES: No cyanosis, no clubbing. He does have 3+ edema up to the level of the knee bilaterall y. It is pitting. He has no open wounds or weeping wounds. He has slightly increased rubor, but no increased heat. SKIN: Otherwise, warm, moist and well perfused. He has no other current rashes or lesions noted. MUSCULOSKELETAL: There is a large joint to be uninflamed. There is no palpable effusion. NEUROLOGIC: Cranial nerves II through XII are grossly intact. He has no focal neurologic deficits. LABORATORY DATA AND X-RAY FINDINGS: Sodium 134, potassium 4.9, chloride 108, bicarbonate 23, BUN 24, creatinine 1.53, glucose 102, and calcium of 8.2. Liver functions showed AST elevated at 114, ALT o f 73, and albumin of 2.8. The remainder of his liver functions are normal. CBC showed a white count of 3.9, hemoglobin 9.3, hematocrit of 27.7, platelet count 111,000. BNP was 1737.0. CK-MB normal at 3.3 and troponin I normal at 0.022. Chest x-ray showed a new left-sided pleural effusion and bilateral pulmonary vascular congestion with cephalization and Kimberly B lines. ASSESSMENT AND PLAN: 1. New onset congestive heart failure, unknown systolic or diastolic. The patient refuses echo in t he last hospital stay. We will order an echocardiogram now, we will get serial cardiac biomarkers, p lace the patient on nitro paste and IV Lasix. We will get strict I's and O's and will need daily bailey ghts. We will likely need Cardiology consultation. 2. Hypertension, blood pressure 187/96. The patient will be on nitro paste and continue his nadolol . Likely, will need to be on beta felicia and DEBORAH inhibitor. Right now, DEBORAH inhibitor will be held due to his increased creatinine. 3. Chronic hepatitis C: I did not ask his treatment status. 4. History of cirrhosis. 5. History of alcohol abuse. Denies current use. 6. Recent erosive esophagitis on Protonix 40 b.i.d., which will continue. 7. Recent blood loss anemia: Hemoglobin is improved from discharge. The patient was placed on inpatient status on telemetry.
[2017-05-24 07:11] LABS: Cardiac Risk 2.4 (Less than 4.5)
[2017-05-24] MEDS: Nitroglycerin 2% Ointment 1 INCH/1 GM Packet TOP SCH ×2 (07:15→14:19)
[2017-05-24 07:20] LABS: CKMB 3.6 ng/mL (0-6.6); Troponin I 0.027 ng/mL (< 0.028)
[2017-05-24] MEDS: HYDROcodone/Acetaminophen 5/325 mg Tablet PO PRN (07:49)
--- NOTE | 2017-05-24 08:09 | RAD ---
SINGLE VIEW OF THE CHEST: Comparison: 05-04-17 History: Dyspnea. FINDINGS: Single view of the chest shows a normal sized cardiomediastinal silhouette. There is a small to moder ate left pleural effusion with adjacent atelectasis. No right sided effusion is seen. IMPRESSION: Left sided pleural effusion. POS: [facility]
[2017-05-24] MEDS: Nadolol 40 MG TAB PO SCH (08:33)
--- NOTE | 2017-05-24 12:10 | PDOC.EVN ---
Event Note - Event Note Event Note: pT WAS SEEN BY HOSPITALIST EARLY THIS MORNING LABS REVIEWED, VSS. CONTINUE LASIX 2D cho pending will change lasix to 40mg iv q12hrs check labs in am case d/w pt & RN
[2017-05-24] MEDS ORDERED: FLU VACC QS2017-18 36 mo. & older 0.5 ML SYRINGE IM ONE (12:30)
[2017-05-24 15:44] LABS: CKMB 3.6 ng/mL (0-6.6); Troponin I 0.023 ng/mL (< 0.028)
[2017-05-24] MEDS ORDERED: Non-Formulary Item 1 EACH (Levocetirizine Dihydrochloride [Levocetirizine Dihydrochloride PO SCH (21:00)
[2017-05-24] MEDS: Furosemide 40 MG/4 ML VIAL SLOW IVP SCH (22:03)
[2017-05-24] MEDS: Tamsulosin HCl 0.4 MG CAP PO SCH (22:03)
[2017-05-24] MEDS: Loratadine 10 MG TAB PO SCH (22:03)
[2017-05-24] MEDS: Folic Acid 1 MG TAB PO SCH (22:04)
[2017-05-25] MEDS: HYDROcodone/Acetaminophen 5/325 mg Tablet PO PRN ×3 (00:37→18:04)
[2017-05-25] MEDS: Nitroglycerin 2% Ointment 1 INCH/1 GM Packet TOP SCH ×4 (00:40→23:45)
[2017-05-25] MEDS ORDERED: Furosemide 40 MG TAB PO SCH (07:30)
[2017-05-25] MEDS: Lisinopril 20 MG TAB PO SCH (08:56)
[2017-05-25] MEDS: Nadolol 40 MG TAB PO SCH (08:56)
[2017-05-25] MEDS: Furosemide 40 MG/4 ML VIAL SLOW IVP SCH (08:58)
--- NOTE | 2017-05-25 15:44 | PDOC.PN ---
- Subjective Encounter Start Date: 05/25/17 Encounter Start Time: 13:30 Subjective: pt up in bed no complains - Objective Resuscitation Status: Resuscitation Status FULL:Full Resuscitation Vital Signs & Weight: Vital Signs (12 hours) Temp Pulse Resp BP BP Pulse Ox 05/25/17 12:43 97.6 F 56 L 16 151/80 H 95 05/25/17 08:56 172/90 H 05/25/17 07:18 98.3 F 60 16 93 L 05/25/17 07:11 98.3 F 60 16 172/90 H 93 L 05/25/17 06:30 98.2 F 67 18 165/70 H Weight Weight 152 lb 14.4 oz I&O: 05/24/17 05/25/17 05/26/17 06:59 06:59 06:59 Intake Total 960 300 Balance 960 300 Result Diagrams: 05/24/17 02:10 05/24/17 02:10 Phys Exam - Physical Examination HEENT: PERRLA, moist MMs Neck: no nodes Respiratory: no wheezing, no rales Cardiovascular: RRR, no significant murmur Gastrointestinal: soft (mild abd distention) Musculoskeletal: edema present Neurological: non-focal, normal sensation Lymphatic: no nodes Dx/Plan (1) Shortness of breath Code(s): R06.02 - SHORTNESS OF BREATH Status: Acute Plan: possibly due to diastolic heart failure vs cirrhosis. pt on lasix will add spironolactone, pt on nadolol.pt has a new left side effusion. will get a lateral decubitus to see if thoracentesis is needed. echo indicated ef of 55-60% (2) Chronic hepatitis C Code(s): B18.2 - CHRONIC VIRAL HEPATITIS C Status: Chronic Plan: pt not on any tx (3) Cirrhosis of liver Code(s): K74.60 - UNSPECIFIED CIRRHOSIS OF LIVER Status: Acute Plan: will start pt on diuretics and he is on nadolol (4) HTN (hypertension) Code(s): I10 - ESSENTIAL (PRIMARY) HYPERTENSION Status: Acute Plan: will add additional meds - Plan * .
[2017-05-25] MEDS: Spironolactone 25 MG TAB PO SCH (16:06)
--- NOTE | 2017-05-25 18:09 | RAD ---
TWO LATERAL DECUBITUS VIEWS OF THE CHEST 05/25/17 COMPARISON: Prior exam dated 05/24/17. FINDINGS: There is layering moderate sized left pleural effusion. There is mild atelectasis. The right lung is clear. IMPRESSION: Moderate sized layering left sided pleural effusion. POS: [facility]
[2017-05-25] MEDS ORDERED: Furosemide 40 MG/4 ML VIAL SLOW IVP SCH (19:30)
[2017-05-25] MEDS: Loratadine 10 MG TAB PO SCH (19:36)
[2017-05-25] MEDS: Tamsulosin HCl 0.4 MG CAP PO SCH (19:36)
[2017-05-25] MEDS: Folic Acid 1 MG TAB PO SCH (19:37)
[2017-05-26] MEDS: Furosemide 40 MG/4 ML VIAL SLOW IVP SCH ×2 (06:18→13:48)
[2017-05-26] MEDS: Nitroglycerin 2% Ointment 1 INCH/1 GM Packet TOP SCH ×4 (06:33→21:59)
[2017-05-26] MEDS: Spironolactone 25 MG TAB PO SCH ×2 (07:56→16:21)
[2017-05-26] MEDS: Nadolol 40 MG TAB PO SCH (07:56)
[2017-05-26] MEDS: Lisinopril 20 MG TAB PO SCH (07:56)
--- NOTE | 2017-05-26 16:35 | PDOC.PN ---
- Subjective Encounter Start Date: 05/26/17 Encounter Start Time: 16:32 Pt seen for followup re: CHF exacerbation. Still has SOBOE, but better. No chest pain. - Objective Resuscitation Status: Resuscitation Status FULL:Full Resuscitation MAR Reviewed: Yes Vital Signs & Weight: Vital Signs (12 hours) Temp Pulse Resp BP BP Pulse Ox 05/26/17 16:00 97.1 F L 60 18 142/73 H 96 05/26/17 12:00 98.0 F 62 18 158/77 H 96 05/26/17 08:00 97.5 F L 65 20 182/90 H 96 05/26/17 07:56 182/90 H Weight Weight 152 lb I&O: 05/25/17 05/26/17 05/27/17 06:59 06:59 06:59 Intake Total 960 700 Balance 960 700 Result Diagrams: 05/24/17 02:10 05/24/17 02:10 EKG Reviewed by me: Yes (Tele: NSR) Phys Exam - Physical Examination Constitutional: NAD HEENT: moist MMs Neck: supple Bibasal crackles Cardiovascular: RRR Gastrointestinal: soft Neurological: moves all 4 limbs Psychiatric: normal affect Dx/Plan (1) CHF exacerbation Code(s): I50.9 - HEART FAILURE, UNSPECIFIED Status: Acute Qualifiers: Heart failure type: diastolic Qualified Code(s): I50.33 - Acute on chronic diastolic (congestive) heart failure (2) Cirrhosis of liver Code(s): K74.60 - UNSPECIFIED CIRRHOSIS OF LIVER Status: Chronic (3) HTN (hypertension) Code(s): I10 - ESSENTIAL (PRIMARY) HYPERTENSION Status: Chronic (4) Chronic hepatitis C Code(s): B18.2 - CHRONIC VIRAL HEPATITIS C Status: Chronic (5) HTN (hypertension) Code(s): I10 - ESSENTIAL (PRIMARY) HYPERTENSION Status: Chronic (6) Protein-calorie malnutrition, moderate Code(s): E44.0 - MODERATE PROTEIN-CALORIE MALNUTRITION Status: Chronic (7) Tobacco abuse Code(s): Z72.0 - TOBACCO USE Status: Chronic (8) Thrombocytopenia Code(s): D69.6 - THROMBOCYTOPENIA, UNSPECIFIED Status: Chronic - Plan out of bed/ambulate * . Continue diuretics for diastolic heart failure exacerbation. Consult cardiology for new-onset heart failure. Ambulate patient. Monitor vital signs, titrate antihypertensives as needed. Tobacco cessation counseling. Review of Systems - Review of Systems Respiratory: SOB with Excertion. negative: Cough, Dry, Shortness of Breath, Hemoptysis, Pleuritic Pain, Sputum, Wheezing Cardiovascular: negative: chest pain, palpitations, orthopnea, paroxysmal nocturnal dyspnea, edema, light headedness, other - Medications/Allergies Allergies/Adverse Reactions: Allergies Allergy/AdvReac Type Severity Reaction Status Date / Time No Known Drug Allergies Allergy Verified 05/24/17 06:40 Medications: Current Medications Acetaminophen (Tylenol) 650 mg PO Q4H PRN PRN Reason: Headache/Fever or Pain Hydrocodone Bitart/Acetaminophen ([place] 5/325) 1 tab PO Q4H PRN PRN Reason: Moderate Pain (4-6) Last Admin: 05/25/17 18:04 Dose: 1 tab Folic Acid (Folvite) 1 mg PO HS [facility] Last Admin: 05/25/17 19:37 Dose: 1 mg Furosemide (Lasix) 40 mg SLOW IVP 0600,1400 [facility] Stop: 05/27/17 14:01 Last Admin: 05/26/17 13:48 Dose: 40 mg Lisinopril (Zestril) 20 mg PO DAILY [facility] Last Admin: 05/26/17 07:56 Dose: 20 mg Loratadine (Claritin) 10 mg PO QPM [facility] Last Admin: 05/25/17 19:36 Dose: Not Given Nadolol (Corgard) 40 mg PO DAILY [facility] Last Admin: 05/26/17 07:56 Dose: 40 mg Nitroglycerin (Nitro-Bid 2% Ointment) 1 inch TOP Q8H [facility] Last Admin: 05/26/17 16:21 Dose: 1 inch Ondansetron HCl (Zofran Odt) 4 mg PO Q6H PRN PRN Reason: Nausea/Vomiting Pantoprazole Sodium (Protonix) 40 mg PO BID [facility] Last Admin: 05/26/17 07:57 Dose: 40 mg Sodium Chloride (Flush - Normal Saline) 10 ml IVF Q12HR [facility] Last Admin: 05/26/17 07:56 Dose: 10 ml Sodium Chloride (Flush - Normal Saline) 10 ml IVF PRN PRN PRN Reason: Saline Flush Spironolactone (Aldactone) 25 mg PO BID[facility] Last Admin: 05/26/17 16:21 Dose: 25 mg Tamsulosin HCl (Flomax) 0.4 mg PO HS [facility] Last Admin: 05/25/17 19:36 Dose: 0.4 mg Thiamine HCl (Thiamine) 100 mg PO [facility] Last Admin: 05/25/17 19:37 Dose: 100 mg
--- NOTE | 2017-05-26 18:46 | CON ---
DATE OF CONSULTATION: 05/26/2017 REASON FOR CONSULTATION: Edema. HISTORY OF PRESENT ILLNESS: Mr. Blackwell is a pleasant 62-year-old white gentleman who comes to the ospital for shortness of breath. I saw him in the office back in 2015 at which time he was complaini ng of chest pain. He never followed up on any stress testing that was ordered or echocardiogram. He was drinking at that time about 10 cans of beer daily. He comes in today for increased shortness of breath and lower extremity edema. He was admitted and started on some Lasix. He states that the sw elling is getting better and he feels a little better as well. His BNP was in the 1700 range. Had a n echocardiogram that showed normal LV function with diastolic dysfunction. He has erosive esophagit is and an ulcer in the past from an EGD just done a few weeks ago. PAST MEDICAL HISTORY: Include, 1. Hypertension. 2. Hepatitis C. 3. 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 4. Erosive esophagitis. 5. Recent gastrointestinal bleed. PAST SURGICAL HISTORY: 1. Right elbow ulnar nerve transposition. 2. Rhinoplasty. 3. Suprapubic tube placement and removal. OUTPATIENT MEDICATIONS: Include, 1. Levocetirizine. 2. Protonix. 3. Folic acid. 4. Flomax. 5. Nadolol. 6. Thiamine. ALLERGIES: No known drug allergies. FAMILY HISTORY: Noncontributory. SOCIAL HISTORY: Pack a day cigarette smoking and denies drug use. Continues to use alcohol, probabl y the same as before about 10 cans of beer daily. REVIEW OF SYSTEMS: A 12-point review of systems was done and is all negative unless stated in the h istory of present illness. PHYSICAL EXAMINATION: VITAL SIGNS: Temperature 98.0, pulse 82, respiration rate 18, satting 96% on room air, blood pressur e 158/77. GENERAL: Awake, alert, oriented x3, in no distress. HEENT: Normocephalic, atraumatic. NECK: Supple. JVD up to about 12 cm of water. LUNGS: Mostly clear. CARDIOVASCULAR: S1, S2, no S3 or S4. ABDOMEN: Positive ascites wave. EXTREMITIES: 3+ edema. SKIN: Warm and dry. LABORATORY WORK: Shows a white count of 3.9, hemoglobin 9.3, hematocrit 27, platelet count 111. Ct mistries showed sodium 134, potassium is 4.9, chloride 108, carbon dioxide 23, anion gap of 8, BUN 24 , creatinine 1.5. Troponin negative x3. BNP of 1737, albumin of 2.8. Chest x-ray showed a left-sided pleural effusion. ASSESSMENT AND PLAN: 1. Volume overload, most likely related to cirrhosis. 2. Diastolic dysfunction: There is a grade I diastolic dysfunction on echo; however, the characteri stics of the edema do not go with diastolic heart failure, they go more with right-sided heart failur e or cirrhosis. His right side is really not that impaired with normal pressures which would lead me to believe that the reason for his swelling is more likely related to his cirrhosis. PLAN: 1. Agree with continued diuresis. 2. We will follow. Thank you for letting us to participate in the care of your patient.
[2017-05-26] MEDS: Loratadine 10 MG TAB PO SCH (19:58)
[2017-05-26] MEDS: Folic Acid 1 MG TAB PO SCH (19:58)
[2017-05-26] MEDS: Tamsulosin HCl 0.4 MG CAP PO SCH (19:58)
[2017-05-26] MEDS: HYDROcodone/Acetaminophen 5/325 mg Tablet PO PRN (21:56)
[2017-05-27] MEDS: Nitroglycerin 2% Ointment 1 INCH/1 GM Packet TOP SCH ×2 (05:17→14:45)
[2017-05-27 05:36] LABS: Anion Gap 10 mmol/L (10-20); BUN (Urea Nitrogen) 33 mg/dL (8.4-25.7); Calc. Creatinine Clearance 43 mL/min (70-130); Carbon Dioxide 30 mmol/L (23-31); Chloride 100 mmol/L (98-107); Estimated GFR-MDRD 41; Glucose 98 mg/dL (80-115); Potassium 4.2 mmol/L (3.5-5.1); Sodium 136 mmol/L (136-145)
[2017-05-27] MEDS: Furosemide 40 MG/4 ML VIAL SLOW IVP SCH ×2 (06:43→14:46)
[2017-05-27] MEDS: Lisinopril 20 MG TAB PO SCH (08:39)
[2017-05-27] MEDS: Spironolactone 25 MG TAB PO SCH ×2 (08:40→17:26)
[2017-05-27] MEDS: Nadolol 40 MG TAB PO SCH (08:41)
--- NOTE | 2017-05-27 11:36 | CON ---
DATE OF CONSULTATION: 05/27/2017 CONSULTING PHYSICIAN: Dr. Breen. REASON FOR CONSULTATION: Pleural effusion on the left. HISTORY OF PRESENT ILLNESS: The patient is a 62-year-old male who was admitted to the hospital on 05/24/2017 with complaints of shortness of breath. The patient tells me that his main issue now is his throat is dry, because fluid is being severely restricted. He also tells me that his abdomen has become grossly protuberant since the time he was admitted. He has a history of longstanding cirrhosis of the liver from both alcohol and hepatitis C. He is continuing to use crack cocaine on a daily basis, although he has not been drinking for a number of months. He had an x-ray, which demonstrated a left pleural effusion which layers. It was noted that he has some degree of diastolic dysfunction and was admitted with a BNP of 1700. PAST MEDICAL HISTORY: 1. Hypertension. 2. Hepatitis C. 3. Cirrhosis. 4. Alcohol abuse. 5. Erosive esophagitis. 6. Ascites noted on an ultrasound date 05/06/2017 when he was in the hospital. PAST SURGICAL HISTORY: 1. Right elbow and ulnar nerve transposition. 2. Rhinoplasty. 3. Suprapubic tube placement and subsequent removal. MEDICATIONS PRIOR TO ADMISSION: Levocetirizine, Protonix, folate, Flomax, nadolol, thiamine. CURRENT INPATIENT MEDICATIONS: Loratadine, tamsulosin, lisinopril, nadolol, nitroglycerin, spironolactone, acetaminophen, hydrocodone, furosemide, Zofran, Protonix, thiamine, folate. SOCIAL HISTORY: One pack a day smoker, used IV drugs in the distant past, but not recently. He uses crack cocaine almost daily, was using alcohol up until a month or so ago. REVIEW OF SYSTEMS: Remarkable for abdominal distention and dry mouth, otherwise negative. PHYSICAL EXAMINATION: VITAL SIGNS: Temperature 98.3, pulse 51, blood pressure 137/72, O2 sat 93%, respiratory rate 20, blood pressure 137/72. GENERAL: He is awake, alert, and in no distress. HEENT: Pupils react. Sclerae are anicteric. Oropharynx dry. NECK: No JVD, no bruits, no thyromegaly. CARDIOVASCULAR: S1, S2 regular, without murmur. LUNGS: Slightly diminished breath sounds in the left base compared to the right , slight dullness to percussion in that region. ABDOMEN: Protuberant with ascites and a fluid wave. GENITOURINARY: He has significant scrotal edema. EXTREMITIES: No clubbing, cyanosis. He has stasis changes in both of his lower legs. LABORATORY DATA: Sodium 136, potassium 4.2, chloride 100, CO2 30, BUN 33, creatinine 1.7, glucose 98. White blood cell count 3.9, hematocrit 27.7, platelet count 111. X-RAY FINDINGS: His chest x-ray was reviewed personally by myself. He has a small left pleural effusion, which layers. I also reviewed previous films, he did not have any degree of effusion when he was previously admitted late last April. ASSESSMENT: This patient is a 62-year-old with alcoholic and hepatitis C, liver cirrhosis. He has developed ascites and pleural effusion. He also has significant scrotal edema. RECOMMENDATIONS: I would repeat the ultrasound of the abdomen to see if the ascites as to degree where it should be tapped. Significant ascites would cause left pleural effusion and the ascites should always be treated first before addressing pleural effusion as the pleural effusion will usually go away after removal of ascitic fluid from the abdomen. I would continue with diuretic therapy that he is currently on. There is no urgent indication for thoracentesis at this time. 70 minutes of time was spent performing this consultation. Of that 70 min, greater than 50% of the time was spent with the patient and/or on the patient's floor MTDD
--- NOTE | 2017-05-27 12:33 | PDOC.CTH ---
Cardiology Progress Note - Subjective He continues to diurese. - Objective Vital Signs Temp Pulse Resp BP BP Pulse Ox 05/27/17 08:39 137/72 05/27/17 07:29 98.3 F 51 L 20 137/72 93 L 05/27/17 03:55 97.9 F 66 16 172/85 H 95 Weight 149 lb 1.6 oz 05/26/17 05/27/17 05/28/17 06:59 06:59 06:59 Intake Total 700 1694 360 Balance 700 1694 360 - Physical Examination General/Neuro: alert & oriented x3, NAD Neck: no JVD present Lungs: unlabored respirations, other: (Reduced breta hsounds on left base.) Heart: RRR Abdomen: NT/ND Extremities: + edema B (2+) - Telemetry Telemetry Rhythm: NSR - Labs Result Diagrams: 05/24/17 02:10 05/27/17 04:32 Troponin/CKMB CK-MB (CK-2) 3.6 ng/mL (0-6.6) 05/24/17 15:06 Troponin I 0.023 ng/mL (< 0.028) 05/24/17 15:06 - Assessment/Plan 1. Volume overload. 2. Hep C and alcoholic cirrhosis 3. Left sided pleural effusion likley related to cirrhosis. 4. Diastolic heart failure, mild and unlikely to be the main issue at this time. 5. Ascitis PLAN: - Continue IV lasix. - I agree with pulmonary that effusion should improve once we get the fluid out.
--- NOTE | 2017-05-27 13:21 | PDOC.PN ---
- Subjective Encounter Start Date: 05/27/17 Encounter Start Time: 13:21 Pt seen for followup re: CHF exacerbation. Reports feeling better. No chest pain. - Objective Resuscitation Status: Resuscitation Status FULL:Full Resuscitation MAR Reviewed: Yes Vital Signs & Weight: Vital Signs (12 hours) Temp Pulse Resp BP BP Pulse Ox 05/27/17 08:39 137/72 05/27/17 07:29 98.3 F 51 L 20 137/72 93 L 05/27/17 03:55 97.9 F 66 16 172/85 H 95 Weight Weight 149 lb 1.6 oz I&O: 05/26/17 05/27/17 05/28/17 06:59 06:59 06:59 Intake Total 700 1694 360 Balance 700 1694 360 Result Diagrams: 05/24/17 02:10 05/27/17 04:32 EKG Reviewed by me: Yes (Tele: NSR) Phys Exam - Physical Examination Constitutional: NAD HEENT: moist MMs Neck: supple Respiratory: clear to auscultation bilateral Cardiovascular: RRR Gastrointestinal: soft Musculoskeletal: edema present Neurological: moves all 4 limbs Psychiatric: normal affect Dx/Plan (1) CHF exacerbation Code(s): I50.9 - HEART FAILURE, UNSPECIFIED Status: Acute Qualifiers: Heart failure type: diastolic Qualified Code(s): I50.33 - Acute on chronic diastolic (congestive) heart failure (2) Cirrhosis of liver Code(s): K74.60 - UNSPECIFIED CIRRHOSIS OF LIVER Status: Chronic (3) HTN (hypertension) Code(s): I10 - ESSENTIAL (PRIMARY) HYPERTENSION Status: Chronic (4) Chronic hepatitis C Code(s): B18.2 - CHRONIC VIRAL HEPATITIS C Status: Chronic (5) HTN (hypertension) Code(s): I10 - ESSENTIAL (PRIMARY) HYPERTENSION Status: Chronic (6) Protein-calorie malnutrition, moderate Code(s): E44.0 - MODERATE PROTEIN-CALORIE MALNUTRITION Status: Chronic (7) Tobacco abuse Code(s): Z72.0 - TOBACCO USE Status: Chronic (8) Thrombocytopenia Code(s): D69.6 - THROMBOCYTOPENIA, UNSPECIFIED Status: Chronic - Plan out of bed/ambulate * . Appreciate pulmonology input, await US abdomen. Continue IV diuretics. Ambulate patient. Discontinue lisinopril (renal failure). Review of Systems - Review of Systems Constitutional: negative: fever, chills, sweats, weakness, malaise Respiratory: SOB with Excertion. negative: Cough, Dry, Shortness of Breath, Hemoptysis, Pleuritic Pain, Sputum, Wheezing - Medications/Allergies Allergies/Adverse Reactions: Allergies Allergy/AdvReac Type Severity Reaction Status Date / Time No Known Drug Allergies Allergy Verified 05/24/17 06:40 Medications: Current Medications Acetaminophen (Tylenol) 650 mg PO Q4H PRN PRN Reason: Headache/Fever or Pain Hydrocodone Bitart/Acetaminophen ([place] 5/325) 1 tab PO Q4H PRN PRN Reason: Moderate Pain (4-6) Last Admin: 05/26/17 21:56 Dose: 1 tab Folic Acid (Folvite) 1 mg PO [facility] Last Admin: 05/26/17 19:58 Dose: 1 mg Furosemide (Lasix) 40 mg SLOW IVP 0600,1400 [facility] Stop: 05/27/17 14:01 Last Admin: 05/27/17 06:43 Dose: 40 mg Loratadine (Claritin) 10 mg PO QPM [facility] Last Admin: 05/26/17 19:58 Dose: Not Given Nadolol (Corgard) 40 mg PO DAILY [facility] Last Admin: 05/27/17 08:41 Dose: 40 mg Nitroglycerin (Nitro-Bid 2% Ointment) 1 inch TOP Q8H [facility] Last Admin: 05/27/17 05:17 Dose: Not Given Ondansetron HCl (Zofran Odt) 4 mg PO Q6H PRN PRN Reason: Nausea/Vomiting Last Admin: 05/26/17 21:57 Dose: 4 mg Pantoprazole Sodium (Protonix) 40 mg PO BID [facility] Last Admin: 05/27/17 08:38 Dose: 40 mg Sodium Chloride (Flush - Normal Saline) 10 ml IVF Q12HR [facility] Last Admin: 05/26/17 19:58 Dose: 10 ml Sodium Chloride (Flush - Normal Saline) 10 ml IVF PRN PRN PRN Reason: Saline Flush Spironolactone (Aldactone) 25 mg PO BID-[facility] Last Admin: 05/27/17 08:40 Dose: 25 mg Tamsulosin HCl (Flomax) 0.4 mg PO [facility] Last Admin: 05/26/17 19:58 Dose: 0.4 mg Thiamine HCl (Thiamine) 100 mg PO HS [facility] Last Admin: 05/26/17 19:58 Dose: 100 mg
--- NOTE | 2017-05-27 16:17 | ULT ---
LIMITED ABDOMINAL ULTRASOUND 05/27/17 HISTORY: Ascites FINDINGS: Four quadrant ultrasound of the abdomen and pelvis was performed to evaluate for ascites. No free flu id is seen. IMPRESSION: No evidence of ascites. POS: [facility]
[2017-05-27] MEDS: HYDROcodone/Acetaminophen 5/325 mg Tablet PO PRN ×2 (19:12→22:59)
[2017-05-27] MEDS: Loratadine 10 MG TAB PO SCH (20:26)
[2017-05-27] MEDS: Folic Acid 1 MG TAB PO SCH (20:28)
[2017-05-27] MEDS: Tamsulosin HCl 0.4 MG CAP PO SCH (20:28)
[2017-05-28] MEDS: Nitroglycerin 2% Ointment 1 INCH/1 GM Packet TOP SCH ×3 (01:06→15:00)
[2017-05-28] MEDS: HYDROcodone/Acetaminophen 5/325 mg Tablet PO PRN (04:12)
[2017-05-28 06:05] LABS: Anisocytosis SLIGHT = 6-15 cells (100X) (0-5/hpf); Band 1 % (5-11); Eosinophils 2 % (0-10); Lymphocytes 15 % (21-51); MDiff Complete? YES; Macrocytosis MODERATE=16-30 cells (100X) (0-5/hpf); Mean Corpuscular Hemoglobin 34.7 pg (27.0-31.0); Mean Platelet Volume 7.8 fL (7.4-10.4); Monocytes 13 % (0-10); Neutrophil 69 % (42-75); PLT Morphology Comment Appears Adequate; Platelet Count 125 thou/uL (130-400); RBC Distribution Width 16.9 % (11.5-14.5); Red Blood Cell (RBC) Count 2.88 mill/uL (4.70-6.10); White Blood Cell (WBC) Count 4.1 thou/uL (4.8-10.8)
[2017-05-28] MEDS: Nadolol 40 MG TAB PO SCH (09:21)
[2017-05-28] MEDS: Spironolactone 25 MG TAB PO SCH ×2 (09:21→17:19)
[2017-05-28] MEDS ORDERED: traMADol HCl 50 MG TAB PO PRN (11:06)
[2017-05-28] MEDS ORDERED: Acetaminophen/Codeine 30-300mg Tablet PO PRN (11:07)
--- NOTE | 2017-05-28 12:50 | PDOC.PN ---
- Subjective Encounter Start Date: 05/28/17 Encounter Start Time: 07:20 Pt seen for followup re: CHF exacerbation. Denies chest pain, shortness of breath, fevers or chills. - Objective Resuscitation Status: Resuscitation Status FULL:Full Resuscitation MAR Reviewed: Yes Vital Signs & Weight: Vital Signs (12 hours) Temp Pulse Resp BP Pulse Ox 05/28/17 04:10 99.2 F 63 20 154/74 H 94 L Weight Weight 148 lb 3.2 oz I&O: 05/27/17 05/28/17 05/29/17 06:59 06:59 06:59 Intake Total 1694 1756 Balance 1694 1756 Result Diagrams: 05/28/17 05:01 05/27/17 04:32 EKG Reviewed by me: Yes (Tele: NSR) Phys Exam - Physical Examination Constitutional: NAD HEENT: moist MMs Neck: supple Respiratory: clear to auscultation bilateral Cardiovascular: RRR Gastrointestinal: soft Musculoskeletal: edema present Neurological: moves all 4 limbs Psychiatric: normal affect Dx/Plan (1) CHF exacerbation Code(s): I50.9 - HEART FAILURE, UNSPECIFIED Status: Acute Qualifiers: Heart failure type: diastolic Qualified Code(s): I50.33 - Acute on chronic diastolic (congestive) heart failure (2) Cirrhosis of liver Code(s): K74.60 - UNSPECIFIED CIRRHOSIS OF LIVER Status: Chronic (3) HTN (hypertension) Code(s): I10 - ESSENTIAL (PRIMARY) HYPERTENSION Status: Chronic (4) Chronic hepatitis C Code(s): B18.2 - CHRONIC VIRAL HEPATITIS C Status: Chronic (5) HTN (hypertension) Code(s): I10 - ESSENTIAL (PRIMARY) HYPERTENSION Status: Chronic (6) Protein-calorie malnutrition, moderate Code(s): E44.0 - MODERATE PROTEIN-CALORIE MALNUTRITION Status: Chronic (7) Tobacco abuse Code(s): Z72.0 - TOBACCO USE Status: Chronic (8) Thrombocytopenia Code(s): D69.6 - THROMBOCYTOPENIA, UNSPECIFIED Status: Chronic - Plan PT/OT, out of bed/ambulate * . Continue IV furosemide. No ascites on abdo US. Monitor vital signs, titrate antihypertensives as needed. Review of Systems - Review of Systems Respiratory: SOB with Excertion. negative: Cough, Dry, Shortness of Breath, Hemoptysis, Pleuritic Pain, Sputum, Wheezing Cardiovascular: negative: chest pain, palpitations, orthopnea, paroxysmal nocturnal dyspnea, edema, light headedness - Medications/Allergies Allergies/Adverse Reactions: Allergies Allergy/AdvReac Type Severity Reaction Status Date / Time No Known Drug Allergies Allergy Verified 05/24/17 06:40 Medications: Current Medications Acetaminophen (Tylenol) 650 mg PO Q4H PRN PRN Reason: Headache/Fever or Pain Acetaminophen/Codeine Phosphate (Tylenol #3) 1 tab PO Q6H PRN PRN Reason: Moderate to Severe Pain (6-10) Folic Acid (Folvite) 1 mg PO HS [facility] Last Admin: 05/27/17 20:28 Dose: 1 mg Loratadine (Claritin) 10 mg PO QPM [facility] Last Admin: 05/27/17 20:26 Dose: Not Given Nadolol (Corgard) 40 mg PO DAILY [facility] Last Admin: 05/28/17 09:21 Dose: 40 mg Nitroglycerin (Nitro-Bid 2% Ointment) 1 inch TOP Q8H [facility] Last Admin: 05/28/17 01:07 Dose: Not Given Ondansetron HCl (Zofran Odt) 4 mg PO Q6H PRN PRN Reason: Nausea/Vomiting Last Admin: 05/26/17 21:57 Dose: 4 mg Pantoprazole Sodium (Protonix) 40 mg PO BID [facility] Last Admin: 05/28/17 09:21 Dose: 40 mg Sodium Chloride (Flush - Normal Saline) 10 ml IVF Q12HR [facility] Last Admin: 05/28/17 09:21 Dose: 10 ml Sodium Chloride (Flush - Normal Saline) 10 ml IVF PRN PRN PRN Reason: Saline Flush Spironolactone (Aldactone) 25 mg PO BID-[facility] Last Admin: 05/28/17 09:21 Dose: 25 mg Tamsulosin HCl (Flomax) 0.4 mg PO [facility] Last Admin: 05/27/17 20:28 Dose: 0.4 mg Thiamine HCl (Thiamine) 100 mg PO [facility] Last Admin: 05/27/17 20:27 Dose: 100 mg Tramadol HCl (Ultram) 50 mg PO Q6H PRN PRN Reason: Moderate to Severe Pain (6-10)
--- NOTE | 2017-05-28 14:24 | PRG ---
DATE OF SERVICE: 05/28/2017 SUBJECTIVE: The patient says he feels better. OBJECTIVE: VITAL SIGNS: Temperature 99.2, pulse 63, respiration 20, O2 sat 94% on room air and blood pressure 1 57/74. HEENT: Unremarkable. NECK: No JVD. LUNGS: He has clear breath sounds bilaterally. I cannot detect any decreased breath sounds or dulln ess to percussion at left base. CARDIAC: S1 and S2 regular. ABDOMEN: Soft, slightly protuberant. EXTREMITIES: No edema. LABORATORY DATA: White blood cell count 4.1, hematocrit 30 and platelet count 125. Sodium 136, pota ssium 4.2, chloride 100, BUN 33, creatinine 1.7 and glucose 98. ASSESSMENT: Small left pleural effusion. PLAN: Given the amount of diuresis, I want to go ahead and recheck an x-ray to see if the effusion i s still present. The abdominal ultrasound did not show any ascites. If the effusion has dissipated with diuresis, then it does not need to be addressed for thoracentesis.
--- NOTE | 2017-05-28 16:27 | RAD ---
PORTABLE CHEST ONE VIEW: 05/28/17 at 3:41 p.m. HISTORY: Pleural effusions. FINDINGS: Comparison is made with exam of 05/24/17. Small residual left pleural effusion is seen.There has been interval improvement in the left sided pl eural effusion. The heart size is borderline. No pneumothoraces or lobar consolidation is seen. IMPRESSION: Small residual left pleural effusion is seen. Interval improvement in the left pleural effusion since 05/24/17. POS: [facility]
--- NOTE | 2017-05-28 17:05 | EKG ---
Test Reason : Blood Pressure : / mmHG Vent. Rate : 066 BPM Atrial Rate : 066 BPM P-R Int : 150 ms QRS Dur : 094 ms QT Int : 436 ms P-R-T Axes : 032 036 057 degrees QTc Int : 457 ms Normal sinus rhythm Possible Left atrial enlargement Borderline ECG Confirmed by RAUL LOPEZ D.O. ([id number]), assignment desk editor [place]BANIA GOMEZ ([id number] on 05/28/2017 5:04:32 PM Referred By: Confirmed By:RAUL LOPEZ D.O.
[2017-05-28 18:57] LABS: Cocaine Metabolite Screen Detected (NotDetected); Medtox Reader # READER 1
[2017-05-28 18:58] LABS: Amphetamine Not Detected (NotDetected); Barbiturates Screen Not Detected (NotDetected); Benzodiazepine Screen Not Detected (NotDetected); Medtox Control Line Valid? VALID (VALID); Methadone Not Detected (NotDetected); Methamphetamine Not Detected (NotDetected); Opiate Screen Detected (NotDetected); Oxycodone Screen Not Detected (NotDetected); Phencyclidine (PCP) Not Detected (NotDetected); THC/Cannabinoid Screen Not Detected (NotDetected); Tricyclic Screen Not Detected (NotDetected)
[2017-05-28] MEDS: Tamsulosin HCl 0.4 MG CAP PO SCH (20:38)
[2017-05-28] MEDS: Folic Acid 1 MG TAB PO SCH (20:38)
[2017-05-28] MEDS: Loratadine 10 MG TAB PO SCH (20:44)
[2017-05-29] MEDS: Nitroglycerin 2% Ointment 1 INCH/1 GM Packet TOP SCH ×2 (00:21→07:00)
[2017-05-29 05:45] LABS: Band 2 % (5-11); Hypochromia SLIGHT = 6-15 cells (100X) (0-5/hpf); Lymphocytes 19 % (21-51); MDiff Complete? YES; Mean Corpuscular Hemoglobin 34.5 pg (27.0-31.0); Mean Platelet Volume 7.5 fL (7.4-10.4); Monocytes 24 % (0-10); Neutrophil 55 % (42-75); PLT Morphology Comment Appears Decreased; Platelet Count 122 thou/uL (130-400); RBC Distribution Width 16.4 % (11.5-14.5); Red Blood Cell (RBC) Count 2.91 mill/uL (4.70-6.10); White Blood Cell (WBC) Count 4.1 thou/uL (4.8-10.8)
[2017-05-29] MEDS: Nadolol 40 MG TAB PO SCH (10:20)
[2017-05-29] MEDS: Spironolactone 25 MG TAB PO SCH ×2 (10:20→17:53)
--- NOTE | 2017-05-29 12:26 | PDOC.PN ---
- Subjective Encounter Start Date: 05/29/17 Encounter Start Time: 08:00 Pt seen for followup re: CHF. Denies chest pain, shortness fo breath, fevers or chills. No nausea or vomiting. No fevers or chills. - Objective Resuscitation Status: Resuscitation Status FULL:Full Resuscitation Vital Signs & Weight: Vital Signs (12 hours) Temp Pulse Resp BP Pulse Ox 05/29/17 04:00 96.1 F L 59 L 18 158/76 H 96 Weight Weight 149 lb 4.8 oz I&O: 05/28/17 05/29/17 05/30/17 06:59 06:59 06:59 Intake Total 1756 1560 Output Total 800 Balance 1756 760 Result Diagrams: 05/29/17 04:35 05/27/17 04:32 Phys Exam - Physical Examination Constitutional: NAD HEENT: moist MMs Neck: supple Respiratory: clear to auscultation bilateral Cardiovascular: RRR Gastrointestinal: soft Neurological: moves all 4 limbs Psychiatric: normal affect Dx/Plan (1) CHF exacerbation Code(s): I50.9 - HEART FAILURE, UNSPECIFIED Status: Acute Qualifiers: Heart failure type: diastolic Qualified Code(s): I50.33 - Acute on chronic diastolic (congestive) heart failure (2) Cirrhosis of liver Code(s): K74.60 - UNSPECIFIED CIRRHOSIS OF LIVER Status: Chronic (3) HTN (hypertension) Code(s): I10 - ESSENTIAL (PRIMARY) HYPERTENSION Status: Chronic (4) Chronic hepatitis C Code(s): B18.2 - CHRONIC VIRAL HEPATITIS C Status: Chronic (5) HTN (hypertension) Code(s): I10 - ESSENTIAL (PRIMARY) HYPERTENSION Status: Chronic (6) Protein-calorie malnutrition, moderate Code(s): E44.0 - MODERATE PROTEIN-CALORIE MALNUTRITION Status: Chronic (7) Tobacco abuse Code(s): Z72.0 - TOBACCO USE Status: Chronic (8) Thrombocytopenia Code(s): D69.6 - THROMBOCYTOPENIA, UNSPECIFIED Status: Chronic - Plan * . Change to oral diuretics. Pleural effusion improved significantly. Home later today or tomorrow with diuretics. Review of Systems - Review of Systems Respiratory: negative: Cough, Dry, Shortness of Breath, Hemoptysis, SOB with Excertion, Pleuritic Pain, Sputum, Wheezing Cardiovascular: negative: chest pain, palpitations, orthopnea, paroxysmal nocturnal dyspnea, edema, light headedness - Medications/Allergies Allergies/Adverse Reactions: Allergies Allergy/AdvReac Type Severity Reaction Status Date / Time No Known Drug Allergies Allergy Verified 05/24/17 06:40 Medications: Current Medications Acetaminophen (Tylenol) 650 mg PO Q4H PRN PRN Reason: Headache/Fever or Pain Acetaminophen/Codeine Phosphate (Tylenol #3) 1 tab PO Q6H PRN PRN Reason: Moderate to Severe Pain (6-10) Last Admin: 05/28/17 19:38 Dose: 1 tab Folic Acid (Folvite) 1 mg PO HS [facility] Last Admin: 05/28/17 20:38 Dose: 1 mg Furosemide (Lasix) 20 mg PO ONE [facility] Furosemide (Lasix) 20 mg PO DAILY [facility] Loratadine (Claritin) 10 mg PO QPM [facility] Last Admin: 05/28/17 20:44 Dose: Not Given Nadolol (Corgard) 40 mg PO DAILY [facility] Last Admin: 05/29/17 10:20 Dose: 40 mg Nitroglycerin (Nitro-Bid 2% Ointment) 1 inch TOP Q8H [facility] Last Admin: 05/29/17 07:00 Dose: Not Given Ondansetron HCl (Zofran Odt) 4 mg PO Q6H PRN PRN Reason: Nausea/Vomiting Last Admin: 05/26/17 21:57 Dose: 4 mg Pantoprazole Sodium (Protonix) 40 mg PO BID [facility] Last Admin: 05/29/17 10:20 Dose: 40 mg Sodium Chloride (Flush - Normal Saline) 10 ml IVF Q12HR [facility] Last Admin: 05/29/17 10:20 Dose: 10 ml Sodium Chloride (Flush - Normal Saline) 10 ml IVF PRN PRN PRN Reason: Saline Flush Spironolactone (Aldactone) 25 mg PO BID-[facility] Last Admin: 05/29/17 10:20 Dose: 25 mg Tamsulosin HCl (Flomax) 0.4 mg PO [facility] Last Admin: 05/28/17 20:38 Dose: 0.4 mg Thiamine HCl (Thiamine) 100 mg PO HS [facility] Last Admin: 05/28/17 20:38 Dose: 100 mg Tramadol HCl (Ultram) 50 mg PO Q6H PRN PRN Reason: Moderate to Severe Pain (6-10)
[2017-05-29] MEDS ORDERED: Furosemide 20 MG TAB PO SCH (12:30)
--- NOTE | 2017-05-29 15:35 | PRG ---
DATE OF SERVICE: 05/29/2017 SUBJECTIVE: Mr. Blackwell is feeling better. PHYSICAL EXAMINATION: VITAL SIGNS: Temperature 96.4, pulse 79, respiratory rate 18, O2 sat 96%, blood pressure 158/76. HEENT: Unremarkable. NECK: No JVD. LUNGS: Improved breath sounds. CARDIAC: S1 and S2 regular. ABDOMEN: Soft. EXTREMITIES: Trace edema. LABORATORY DATA AND IMAGING DATA: White blood cell count 4.1, hematocrit 30, platelet count 122. So dium 136, potassium 4.2, chloride 100, CO2 30, BUN 33, creatinine 1.7, glucose 98. Chest x-ray shows vast improvement in the left pleural effusion indicating this is probably transudative effusion seco ndary to fluid overload from cirrhosis. RECOMMENDATION: I would not recommend thoracentesis. He can go home on diuretics. No further recom mendations. We will sign off.
[2017-05-29] MEDS: Folic Acid 1 MG TAB PO SCH (20:52)
[2017-05-29] MEDS: Tamsulosin HCl 0.4 MG CAP PO SCH (20:52)
[2017-05-29] MEDS: Loratadine 10 MG TAB PO SCH (20:53)
[2017-05-30 05:11] LABS: #Eosinphils 0.5 thou/uL (0.0-0.7); #Monocytes 0.6 thou/uL (0.11-0.59); #Neutrophils 2.6 thou/uL (1.40-6.50); %Basophils 0.4 % (0.0-1.0); %Eosinophils 10.2 % (0.0-10.0); %Lymphocytes 21.7 % (21.0-51.0); %Neutrophils 54.8 % (42.0-75.0); Hemoglobin 10.5 g/dL (14.0-18.0); Mean Corpuscular HGB CONC 32.6 g/dL (32.0-36.0); Mean Corpuscular Hemoglobin 34.1 pg (27.0-31.0); Mean Platelet Volume 7.5 fL (7.4-10.4); Platelet Count 125 thou/uL (130-400); RBC Distribution Width 16.3 % (11.5-14.5); Red Blood Cell (RBC) Count 3.09 mill/uL (4.70-6.10); White Blood Cell (WBC) Count 4.7 thou/uL (4.8-10.8)
[2017-05-30] MEDS: Spironolactone 25 MG TAB PO SCH (09:18)
[2017-05-30] MEDS: Nitroglycerin 2% Ointment 1 INCH/1 GM Packet TOP SCH (09:18)
[2017-05-30] MEDS: Nadolol 40 MG TAB PO SCH (09:19)
[2017-05-30] MEDS: Furosemide 20 MG TAB PO SCH ×2 (09:19→09:28)
[2017-05-30 11:27] VITALS: BP 166/77; TEMP 98
--- NOTE | 2017-05-30 12:20 | DIS ---
DATE OF ADMISSION: 05/24/2017 DATE OF DISCHARGE: 05/30/2017 PRIMARY CARE PHYSICIAN: Bryce Escoto D.O. DISCHARGE DIAGNOSES: 1. Acute diastolic congestive heart failure. 2. Left pleural effusion, likely transudative secondary to fluid overload from cirrhosis. CONDITION OF PATIENT ON THE DAY OF DISCHARGE: Stable. I assessed Mr. Blackwell on the day of discharg e. He denies any chest pain or shortness of breath. Vital signs are stable. S1 and S2 are heard, r egular. Lungs are clear to auscultation bilaterally. DISCHARGE MEDICATIONS: Furosemide 20 mg orally daily, folic acid 1 mg at bedtime, levocetirizine 5 m g every evening, multivitamin 1 tablet daily, nadolol 20 mg daily, Protonix 40 mg 2 times a day, and tamsulosin 0.4 mg at bedtime. INVESTIGATIONS DURING THIS HOSPITALIZATION: A 2D echocardiogram on 05/24/2017, which showed left elvis tricular ejection fraction of 55%-60%, EA flow reversal suggestive of diastolic dysfunction, mildly d ilated left atrium, mild mitral regurgitation and mild tricuspid regurgitation. Abdominal ultrasound on 05/27/2017, which did not reveal any evidence of ascites. Chest x-ray on 05/24/2017, which showed left-sided pleural effusion. Chest x-ray on 05/28/2017, whic h showed a small residual left pleural effusion and interval improvement in effusion since 05/24/2017 . Urine drug screen on 05/28/2017 positive for opiates and cocaine. HOSPITAL COURSE: Mr. Blackwell is a pleasant 62-year-old gentleman who was admitted to [facility] on 05/30/2017 for congestive heart failure. He was seen by Cardiology and Pulmono logy Services. He was treated with intravenous diuretics with clinical improvement. He is being dis charged home in a stable condition. He has been started on furosemide 20 mg orally daily. He had br adycardia during this hospitalization. His nadolol has also been decreased to 20 mg daily. On the d ay of discharge, he has white count of 4700, hemoglobin 10.5, platelet count 125,000, normal electrol ytes, elevated blood urea nitrogen of 33 and normal creatinine. His TSH was normal during this hospi talization. Fasting lipid profile showed triglycerides of 92, cholesterol 128, LDL cholesterol 57, a nd HDL cholesterol 53. CONSULTATIONS DURING THIS HOSPITALIZATION: Cardiology, Dr. Kasper; Pulmonary, Dr. Pires. Many thanks for allowing me to participate in your patient's care. Please feel free to contact me if any questions or concerns. DISCHARGE DESTINATION: Home. TOTAL AMOUNT OF TIME SPENT COORDINATING THIS DISCHARGE: 33 minutes. ADDENDUM: Mr. Blackwell is also being discharged home on spironolactone 25 mg 2 times a day.
--- NOTE | 2017-05-30 18:15 | PDOC.EVN ---
Event Note - Event Note Event Note: Was notified today afternoon by nursing staff that pt left the floor and came back appearing to be 'high'. Examined patient. Pt denies any recent drug use, reports his last cocaine use was 15 days ago. When I examined him, he had a normal mood and affect, alert and oriented x 3. VSS. S1, S2, RRR, lungs CTA. Neuro exam was nonfocal. Pt said he will followup with his PCP following discharge re: referral for pain management. Pt was discharged home.
== END 2017-05-30 17:22 | disposition home or self-care (01) | DRG 432 ==
LOC: ERS 01:43 → 2NO 04:10
PROVIDERS: ADMIT Internal Medicine Infectious Disease; ATTEND Internal Medicine Infectious Disease
DX: K74.69 Other cirrhosis of liver (principal); I50.33 Acute on chronic diastolic (congestive) heart failure; K70.30 Alcoholic cirrhosis of liver without ascites; E44.0 Moderate protein-calorie malnutrition; J91.8 Pleural effusion in other conditions classified elsewhere; D69.6 Thrombocytopenia, unspecified; I11.0 Hypertensive heart disease with heart failure; F14.10 Cocaine abuse, uncomplicated; F17.210 Nicotine dependence, cigarettes, uncomplicated; N50.89 Other specified disorders of the male genital organs; B18.2 Chronic viral hepatitis C; Z68.22 Body mass index [BMI] 22.0-22.9, adult; R09.02 Hypoxemia
CPT/HCPCS: 36415; 71045; 76705; 80048; 80053; 80061; 80306; 82553; 83735; 83880; 84443; 84484; 85025; 93005; 93306; 93798; 94760; 96374; 96375; 99406; A4216; J0360; J1940; Q0162

== ENCOUNTER 2017-08-18 14:06 | Emergency (ER) | payer MEDICARE ==
[2017-08-18] MEDS ORDERED: hydrALAZINE 20 MG/ML VIAL ONE (15:36)
== END 2017-08-18 16:40 | disposition home or self-care (01) ==
LOC: ERS 14:06
DX: I16.0 Hypertensive urgency (principal); F14.10 Cocaine abuse, uncomplicated; F17.210 Nicotine dependence, cigarettes, uncomplicated; Z79.899 Other long term (current) drug therapy
CPT/HCPCS: 93005; 96374; J0360